=== PATIENT | male | born 1960 | race Caucasian/White ===

== ENCOUNTER 2016-07-26 10:24 | Emergency (ER) | payer BC ==
[2016-07-26 11:33] VITALS: BP 125/73
[2016-07-26] MEDS ORDERED: NS 0.9% 1000 ML* 2,000 ML IV ONE (15:45)
[2016-07-26 16:16] LABS: Hematocrit 47 % (42-52); Mean Corpuscular HGB Conc 34 g/dl (31-36); Mean Corpuscular Hemoglobin 32 pg (27-31); Mean Corpuscular Volume 93 fL (80-94); Mean Platelet Volume 7 um3 (7.4-10.4); Red Blood Count 5.03 10^6/ul (4.0-5.4); Red Cell Distribution Width 13 % (10.5-15); White Blood Count 6.9 10^3/ul (3.5-10.8)
[2016-07-26 16:22] LABS: Urine Bilirubin Negative (Negative); Urine Glucose Negative (Negative); Urine Nitrite Negative (Negative)
[2016-07-26 16:30] LABS: ALT 32 U/L (7-52); Albumin 5.1 g/dL (3.2-5.2); Alkaline Phosphatase 41 U/L (34-104); Blood Urea Nitrogen 13 mg/dL (6-24); C Reactive Protein < 1.00 mg/L (< 5.00); CO2 Carbon Dioxide 27 mmol/L (22-32); Calcium 9.9 mg/dL (8.6-10.3); Chloride 101 mmol/L (101-111); EGFR African American 108.5 (>60); EGFR Non-African American 84.4 (>60); Globulin 2.8 g/dL (2-4); Glucose 98 mg/dL (70-100); Lipase 20 U/L (11.0-82.0); Sodium 136 mmol/L (133-145); Total Protein 7.9 g/dL (6.4-8.9)
[2016-07-26 16:33] LABS: AST 37 U/L (13-39); Anion Gap 8 mmol/L (2-11)
[2016-07-26] MEDS ORDERED: Iohexol 300* (CONTRAST) 10 ML SDV IV ONE (18:06)
--- NOTE | 2016-07-26 18:23 | RAD ---
INDICATION: Right-sided abdominal pain COMPARISON: CT abdomen and pelvis February 16, 2016 TECHNIQUE: Axial source images were obtained from the hemidiaphragms to the symphysis pubis following administration of oral and intravenous contrast. 8 mL Omnipaque 300 was utilized. Coronal and sagittal reconstructed images were acquired. Lung bases: The lung bases are clear. Liver: The liver is normal in size. There are no masses. There is no ductal dilatation. Gallbladder: There is presumed cholecystectomy. Spleen: The spleen is normal in size. There are no masses. Pancreas: There is no focal pancreatic mass or ductal dilatation. Adrenal glands: There is no evidence of adrenal mass. Kidneys: The kidneys are normal in size and position. There are prompt nephrograms and there is prompt excretion bilaterally. There are no renal parenchymal masses. There is no evidence of nephrolithiasis. Adenopathy: There is no evidence of adenopathy by size criteria. Fluid collections: There are no free or localized fluid collections. Vessels:There are no significant atherosclerotic changes involving the aorta. There is no focal aneurysm. The iliac vessels are normal in caliber. The IVC appears normal. GI tract: There are no acute CT bowel findings. There is no obstruction. The stomach and small bowel appear normal. There is diverticulosis of the sigmoid colon. There is no CT evidence of acute diverticulitis The cecum, ileocecal valve, and terminal ileum appear normal. The appendix is not visualized with certainty. There is no periappendiceal inflammatory change Pelvic organs: The prostate and seminal vesicles appear normal Bladder: There are no bladder masses. Abdominal and pelvic soft tissues: The extraperitoneal abdominal and pelvic soft tissues appear normal.. Osseous structures: There is is chronic, healed, L5 spondylolysis. There is a 3 mm anterolisthesis of L5 relative to L4 and S1. Other: None IMPRESSION: NO ACUTE CT FINDINGS. NO MASS OR INFLAMMATORY CHANGE.
[2016-07-26] MEDS ORDERED: Dicyclomine CAP* 10 MG PO ONE (21:00)
--- NOTE | 2016-07-26 21:06 | ED ---
Ponce Barrera Billy, scribed for Sanjay Harrington MD on 07/26/16 at 1847 . Abdominal Pain/Male - HPI Summary HPI Summary: Patient is a 55 year-old male coming to [facility] presenting with diffuse abdominal pain, worst in the RUQ. He has had intermittent, weekly episodes of right-sided abdominal pain for the last 6 years, and the current episode started 2 days ago. Pain severity 10/10, radiates to the right shoulder. He also describes headache (pressure). Nothing makes his symptoms better/worse. PSHx is significant for cholecystectomy. - History of Current Complaint Chief Complaint: EDAbdPain Stated Complaint: RT FLANK PAIN Time Seen by Provider: 07/26/16 15:30 Hx Obtained From: Patient Onset/Duration: Gradual Onset, Still Present Timing: Intermittent Severity Initially: Moderate Severity Currently: Moderate Pain Intensity: 10 Pain Scale Used: 0-10 Numeric Location: Diffuse, Discrete At: RLQ Radiates: Yes Radiates to: Other - shoulder Aggravating Factor(s): Nothing Alleviating Factor(s): Nothing Associated Signs And Symptoms: Positive: Other - headache - Allergies/Home Medications Allergies/Adverse Reactions: Allergies Allergy/AdvReac Type Severity Reaction Status Date / Time Morphine Allergy Severe SEVERE Verified 02/16/16 11:55 VOMITING Penicillins Allergy Unknown Unknown Verified 02/16/16 11:55 Reaction Details PMH/Surg Hx/FS Hx/Imm Hx Endocrine/Hematology History: Denies: Hx Diabetes Cardiovascular History: Denies: Hx Hypertension, Hx Pacemaker/ICD Respiratory History: Comment Only: Other Respiratory Problems/Disorders - LYME GI History: Reports: Hx Gastroesophageal Reflux Disease Denies: Hx Cirrhosis History: Denies: Hx Renal Disease Musculoskeletal History: Reports: Hx Arthritis - RIGHT SHOULDER, SPINE, Hx Bursitis - RIGHT SHOULDER, Hx Tendonitis - RIGHT SHOULDER Sensory History: Reports: Hx Contacts or Glasses - READING GLASSES Denies: Hx Hearing Aid Opthamlomology History: Reports: Hx Contacts or Glasses - READING GLASSES Neurological History: Reports: Other Neuro Impairments/Disorders - LYME DISEASE Psychiatric History: Denies: Hx Panic Disorder - Surgical History Surgery Procedure, Year, and Place: CHO[place]ST[place]OM[place], 06/2010, [place] RIGHT SHOULDER BURSECTOMY Hx Anesthesia Reactions: Yes - MORPHINE - VOMITING SEVERE Infectious Disease History: No Infectious Disease History: Denies: Hx Hepatitis, History Other Infectious Disease, Traveled Outside the [place] in Last 30 Days - Family History Known Family History: Negative: Cardiac Disease, Diabetes - Social History Alcohol Use: None Substance Use Type: Reports: None Smoking Status (MU): Former Smoker Have You Smoked in the Last Year: No Review of Systems Positive: Abdominal Pain Positive: Headache All Other Systems Reviewed And Are Negative: Yes Physical Exam Triage Information Reviewed: Yes Vital Signs On Initial Exam: Initial Vitals Temp Pulse Resp BP Pulse Ox 99.1 F 73 16 136/82 100 07/26/16 10:45 07/26/16 10:45 07/26/16 10:45 07/26/16 10:45 07/26/16 10:45 Vital Signs Reviewed: Yes Appearance: Positive: Well-Appearing, No Pain Distress Skin: Positive: Warm, Skin Color Reflects Adequate Perfusion, Dry Head/Face: Positive: Normal Head/Face Inspection Eyes: Positive: EOMI, JAMIR ENT: Positive: Normal ENT inspection Neck: Positive: Supple, Nontender Respiratory/Lung Sounds: Positive: Clear to Auscultation, Breath Sounds Present Cardiovascular: Positive: RRR Abdomen Description: Positive: Soft, Other: - diffusely tender, worst in RLQ Bowel Sounds: Positive: Other - high-pitched Musculoskeletal: Positive: Normal, Strength/ROM Intact Neurological: Positive: Normal, Sensory/Motor Intact, Alert, Oriented to Person Place, Time Psychiatric: Positive: Affect/Mood Appropriate Diagnostics - Vital Signs Vital Signs Temp Pulse Resp BP Pulse Ox 07/26/16 11:31 98.8 F 83 18 125/73 100 07/26/16 10:45 99.1 F 73 16 136/82 100 - Laboratory Lab Results: Lab Results 07/26/16 07/26/16 07/26/16 Range/Units 16:05 16:05 16:05 WBC 6.9 (3.5-10.8) 10^3/ul RBC 5.03 (4.0-5.4) 10^6/ul Hgb 16.0 (14.0-18.0) g/dl Hct 47 (42-52) % MCV 93 (80-94) fL MCH 32 H (27-31) pg MCHC 34 (31-36) g/dl RDW 13 (10.5-15) % Plt Count 237 (150-450) 10^3/ul MPV 7 L (7.4-10.4) um3 Neut % (Auto) 73.6 (38-83) % Lymph % (Auto) 17.6 L (25-47) % Rush % (Auto) 8.0 (1-9) % Eos % (Auto) 0.4 (0-6) % Baso % (Auto) 0.4 (0-2) % Absolute Neuts (auto) 5.1 (1.5-7.7) 10^3/ul Absolute Lymphs (auto) 1.2 (1.0-4.8) 10^3/ul Absolute Monos (auto) 0.6 (0-0.8) 10^3/ul Absolute Eos (auto) 0 (0-0.6) 10^3/ul Absolute Basos (auto) 0 (0-0.2) 10^3/ul Absolute Nucleated RBC 0 10^3/ul Nucleated RBC % 0 INR (Anticoag Therapy) (0.89-1.11) Sodium 136 (133-145) mmol/L Potassium 4.0 (3.5-5.0) mmol/L Chloride 101 (101-111) mmol/L Carbon Dioxide 27 (22-32) mmol/L Anion Gap 8 (2-11) mmol/L BUN 13 (6-24) mg/dL Creatinine 0.93 (0.67-1.17) mg/dL Est GFR ( Amer) 108.5 (>60) Est GFR (Non-Af Amer) 84.4 (>60) BUN/Creatinine Ratio 14.0 (8-20) Glucose 98 (70-100) mg/dL Lactic Acid (0.5-2.0) mmol/L Calcium 9.9 (8.6-10.3) mg/dL Total Bilirubin 2.00 H (0.2-1.0) mg/dL AST 37 (13-39) U/L ALT 32 (7-52) U/L Alkaline Phosphatase 41 (34-104) U/L C-Reactive Protein < 1.00 (< 5.00) mg/L Total Protein 7.9 (6.4-8.9) g/dL Albumin 5.1 (3.2-5.2) g/dL Globulin 2.8 (2-4) g/dL Albumin/Globulin Ratio 1.8 (1-3) Lipase 20 (11.0-82.0) U/L Urine Color Yellow Urine Appearance Clear Urine pH 6.0 (5-9) Ur Specific [place] 1.008 L (1.010-1.030) Urine Protein Negative (Negative) Urine Ketones 1+ H (Negative) Urine Blood Negative (Negative) Urine Nitrate Negative (Negative) Urine Bilirubin Negative (Negative) Urine Urobilinogen Negative (Negative) Ur Leukocyte Esterase Negative (Negative) Urine Glucose Negative (Negative) 07/26/16 07/26/16 Range/Units 16:05 16:05 WBC (3.5-10.8) 10^3/ul RBC (4.0-5.4) 10^6/ul Hgb (14.0-18.0) g/dl Hct (42-52) % MCV (80-94) fL MCH (27-31) pg MCHC (31-36) g/dl RDW (10.5-15) % Plt Count (150-450) 10^3/ul MPV (7.4-10.4) um3 Neut % (Auto) (38-83) % Lymph % (Auto) (25-47) % Rush % (Auto) (1-9) % Eos % (Auto) (0-6) % Baso % (Auto) (0-2) % Absolute Neuts (auto) (1.5-7.7) 10^3/ul Absolute Lymphs (auto) (1.0-4.8) 10^3/ul Absolute Monos (auto) (0-0.8) 10^3/ul Absolute Eos (auto) (0-0.6) 10^3/ul Absolute Basos (auto) (0-0.2) 10^3/ul Absolute Nucleated RBC 10^3/ul Nucleated RBC % INR (Anticoag Therapy) 0.95 (0.89-1.11) Sodium (133-145) mmol/L Potassium (3.5-5.0) mmol/L Chloride (101-111) mmol/L Carbon Dioxide (22-32) mmol/L Anion Gap (2-11) mmol/L BUN (6-24) mg/dL Creatinine (0.67-1.17) mg/dL Est GFR ( Amer) (>60) Est GFR (Non-Af Amer) (>60) BUN/Creatinine Ratio (8-20) Glucose (70-100) mg/dL Lactic Acid 1.6 (0.5-2.0) mmol/L Calcium (8.6-10.3) mg/dL Total Bilirubin (0.2-1.0) mg/dL AST (13-39) U/L ALT (7-52) U/L Alkaline Phosphatase (34-104) U/L C-Reactive Protein (< 5.00) mg/L Total Protein (6.4-8.9) g/dL Albumin (3.2-5.2) g/dL Globulin (2-4) g/dL Albumin/Globulin Ratio (1-3) Lipase (11.0-82.0) U/L Urine Color Urine Appearance Urine pH (5-9) Ur Specific [place] (1.010-1.030) Urine Protein (Negative) Urine Ketones (Negative) Urine Blood (Negative) Urine Nitrate (Negative) Urine Bilirubin (Negative) Urine Urobilinogen (Negative) Ur Leukocyte Esterase (Negative) Urine Glucose (Negative) Result Diagrams: 07/26/16 16:05 07/26/16 16:05 Lab Statement: Any lab studies that have been ordered have been reviewed, and results considered in the medical decision making process. - CT abd/pel w CT Interpretation: No Acute Changes CT Interpretation Completed By: Radiologist Re-Evaluation - Re-Evaluation First Eval Re-Evaluation Time: 19:44 Comment: Labs and imaging reviewed. Patient states he wishes to speak to a surgeon. Abdominal Pain Fem Course/Dx - Course Assessment/Plan: DISCUSSED RESULTS WITH PATIENT. NO EVIDENCE OF SURGICAL ABDOMEN AT THIS TIME. WILL TRY A TRIAL OF BENTYL. F/U WITH GI AND SURGERY. DISCHARGE HOME STABLE. - Diagnoses Provider Diagnoses: Chronic abdominal pain - Provider Notifications Discussed Care Of Patient With: Dr. Ochoa (surgery) @ 2012: will see as outpatient Discharge - Discharge Plan Condition: Stable Disposition: HOME Prescriptions: Dicyclomine CAP* [Bentyl CAP*] 10 mg PO TID PRN #30 cap PRN Reason: Pain Patient Education Materials: Abdominal Pain (ED) Referrals: Sara Mead MD [Primary Care Provider] - Additional Instructions: FOLLOW UP WITH GASTROENTEROLOGY AND SURGERY. TAKE THE BENTYL DIRECTED IF HELPFUL. RETURN TO THE EMERGENCY DEPARTMENT FOR ANY WORSENING OF YOUR CONDITION OR QUESTIONS OR CONCERNS. The documentation as recorded by the Ponce martinez Billy accurately reflects the service I personally performed and the decisions made by me, Sanjay Harrington MD.
== END 2016-07-26 21:16 | disposition home or self-care (01) ==
LOC: ED 10:24
DX: R10.9 Unspecified abdominal pain (principal); G89.29 Other chronic pain; Z88.0 Allergy status to penicillin; Z88.5 Allergy status to narcotic agent; A69.20 Lyme disease, unspecified; Z87.891 Personal history of nicotine dependence
CPT/HCPCS: 36415; 74177; 80053; 81003; 82140; 83605; 83690; 85025; 85610; 86140; 96360; 99282; A9270-GY; Q9967

== ENCOUNTER → 2016-09-20 14:16 | Day surgery (SDC) | payer BC ==
[~2016-09-20 14:16] MED LIST: Bacitracin OINTMENT* 1 TUBE ONE; Buffered Lidocaine 1% SYRIN* 3 ML/SYR SYRINGE INTRADERM ONE; Bupivacaine 0.25% EPI 200,000* 30 ML SDV ONE; Clindamycin 900 MG IVPREMIX(* 900 MG/50 ML SDV IV ONE; Dexamethasone IV* 4 MG/ML 1 ML (4 MG) ONE; EPHEDrine (Pressors)* 50 MG/ML VIAL ONE; Famotidine IV* 10 MG/ML 2 ML (20 mg) IV ONE; Famotidine IV* 10 MG/ML 2 ML (20 mg) ONE; Glycopyrrolate IV* 0.2 MG/ML 1 ML VIAL ONE; HYDROmorphone* 1 MG/ML 1 ML SYR IV PRN; HYDROmorphone* 1 MG/ML 1 ML SYR ONE; KETAMINE HCL* 50 MG/ML 10 ML VIAL ONE; Ketorolac INJ* 30 MG/ML 1 ML VIAL ONE; Midazolam* 1 MG/ML 5 ML VIAL (5 MG) ONE; Neostigmine Methylsulfate* 2 MG/2 ML SYRINGE ONE; Ondansetron INJ* 2 MG/ML VIAL ONE; PROCHLORPERAZINE INJ 5 MG/ML 2 ML VIAL IV PRN; PROCHLORPERAZINE INJ 5 MG/ML 2 ML VIAL ONE; Propofol* 10 MG/ML 20 ML BTL IV PUSH ONE; Scopolamine 1.5 mg* PATCH ONE; Scopolamine 1.5 mg* PATCH TRANSDERM ONE; Scopolomine PATCH Remove* 1 NOTE MISC PATCH OFF ONE; fentaNYL* 50 MCG/ML 2 ML VIAL (100 MCG VIAL) IV PRN; fentaNYL* 50 MCG/ML 2 ML VIAL (100 MCG VIAL) ONE; oxyCODONE/Acetamin 5/325 MG* TAB PO PRN
--- NOTE | 2016-09-20 16:31 | SURGPN ---
Brief Operative Note - Surgery Procedures: Procedures Pre-OP Diagnoses: abdominal pain Post-op Diagnosis: same Procedure: Diagnostic Laparoscopy, appendectomy Surgeon: Don Asst: Humphrey Stahl EBL: minimal IVF: crystalloid Specimen: appendix Drains: none
[2016-09-20 17:53] VITALS: BP 123/72
--- NOTE | 2016-09-21 05:48 | OP ---
CC: Sara Mead MD; [facility] OPERATIVE REPORT: DATE OF OPERATION: 09/20/16 DATE OF : 60 SURGEON: Issac Ochoa MD HABILITATIVE INTERVENTIONIST: MI Greco ANESTHESIOLOGIST: Dr. Stahl. ANESTHESIA: General. PRE-OP DIAGNOSIS: Abdominal pain. POST-OP DIAGNOSIS: Abdominal pain. OPERATIVE PROCEDURE: Diagnostic laparoscopy, appendectomy. ESTIMATED BLOOD LOSS: Minimal. FLUIDS: Minimal crystalloid fluid given. SPECIMEN: Appendix. DRAINS: None. INSTRUMENT: Lap pad count and instrument count correct at the end of the procedure. DESCRIPTION OF PROCEDURE: The patient was identified in the preoperative area, case discussed with him and his again, and consent signed for laparoscopic appendectomy. The patient was marked, b rought to the operating room and placed on the operating room in supine position. Preoperative anti biotics were given, sequential devices were placed on bilateral lower extremities. General anesthes ia was induced. The patient's abdomen was clipped of hair, prepped and draped in a standard surgica l fashion. A time-out was performed. Folds of the umbilicus were elevated anteriorly and a Veress needle was inserted through the abdominal cavity, which was then allowed to insufflate to a pressure of 15 mmHg. The patient tolerated the insufflation well. An infraumbilical incision was made and a 5 mm trocar was inserted through this. Laparoscope was inserted through this and there was no hemal dence of injury from the trocar insertion or from the Veress needle which was removed. Additional t rocars were then placed in the following positions, a 5 mm in the suprapubic area and a 5 mm in the left lower quadrant. Review of the abdomen showed normal-appearing liver, gallbladder was surgically absent. Stomach sally eared intact. There was scant amount of free fluid above the liver. The pelvis showed also a very scant amount of ascites fluid. The sigmoid colon was intact with mild adhesions to the left lateral sidewall. The inguinal spaces bilaterally showed no evidence of herniation. Attention was turned towards the appendix. It was nondilated and it was adhered to the retroperiton eum. It was lifted up, both sharp dissection and electrocautery was utilized to free it up from the retroperitoneum. Once this was lifted and rotated medially, we were able to isolate the vessel. T his was doubly clipped and ligated. Hemostasis was excellent. Next, the appendix was lifted up off the cecum and a 2-0 Polysorb Endoloop was placed at the base of the appendix through healthy tissue. The distal portion of the appendix was clipped and re-cut bet ween the suture and the clip. Appendix was then placed in a 5 mm Endobag and removed through the um bilical port site without event. Review of the clip line and the Endoloop showed no evidence of ble eding or enteric contents. The mucosa of the appendiceal stump was then cauterized and the table wa s repositioned to neutral. Abdomen was allowed to collapse. Trocars were removed under direct visi on, and all 3 skin incisions were reapproximated with 4-0 Monocryl subcuticular sutures followed by Steri-Strips and sterile dressing. The patient tolerated the procedure well, was woken up in the OR , and transferred to the PACU in stable condition. [id number]/[facility] #: [id number]
== END | disposition home or self-care (01) ==
LOC: OR 14:16
PROVIDERS: ATTEND Surgery
DX: R10.31 Right lower quadrant pain (principal); Z88.0 Allergy status to penicillin; Z88.5 Allergy status to narcotic agent; Z87.891 Personal history of nicotine dependence; F41.9 Anxiety disorder, unspecified; R10.84 Generalized abdominal pain
CPT/HCPCS: 88304; A9270-GY; C1776; J0780; J1100; J1170; J1885; J2250; J2405; J2704; J3010

== ENCOUNTER 2017-06-06 07:26 | Day surgery (SDC) | payer BC ==
[~2017-06-06 07:26] MED LIST changes: -Bacitracin OINTMENT* 1 TUBE ONE; +Buffered Lidocaine 0.9% SYRIN* 5 ML/SYR SYRINGE INTRADERM ONE; -Buffered Lidocaine 1% SYRIN* 3 ML/SYR SYRINGE INTRADERM ONE; -Bupivacaine 0.25% EPI 200,000* 30 ML SDV ONE; -Clindamycin 900 MG IVPREMIX(* 900 MG/50 ML SDV IV ONE; -Dexamethasone IV* 4 MG/ML 1 ML (4 MG) ONE; +DiMENhydriNATE IV* 50 MG/ML VIAL IV PUSH PRN; -EPHEDrine (Pressors)* 50 MG/ML VIAL ONE; -Famotidine IV* 10 MG/ML 2 ML (20 mg) ONE; -Glycopyrrolate IV* 0.2 MG/ML 1 ML VIAL ONE; -HYDROmorphone* 1 MG/ML 1 ML SYR IV PRN; -HYDROmorphone* 1 MG/ML 1 ML SYR ONE; -KETAMINE HCL* 50 MG/ML 10 ML VIAL ONE; -Ketorolac INJ* 30 MG/ML 1 ML VIAL ONE; -Midazolam* 1 MG/ML 5 ML VIAL (5 MG) ONE; -Neostigmine Methylsulfate* 2 MG/2 ML SYRINGE ONE; -Ondansetron INJ* 2 MG/ML VIAL ONE; -PROCHLORPERAZINE INJ 5 MG/ML 2 ML VIAL ONE; -Propofol* 10 MG/ML 20 ML BTL IV PUSH ONE; -Scopolamine 1.5 mg* PATCH ONE; -Scopolamine 1.5 mg* PATCH TRANSDERM ONE; -Scopolomine PATCH Remove* 1 NOTE MISC PATCH OFF ONE; -fentaNYL* 50 MCG/ML 2 ML VIAL (100 MCG VIAL) ONE
[2017-06-06] MEDS ORDERED: Clindamycin 900 MG IVPREMIX(* 900 MG/50 ML SDV IV ONE (07:29)
[2017-06-06] MEDS ORDERED: Buffered Lidocaine 0.9% SYRIN* 5 ML/SYR SYRINGE ONE ×2 (07:30→07:44)
[2017-06-06] MEDS ORDERED: Famotidine IV* 10 MG/ML 2 ML (20 mg) ONE (07:48)
[2017-06-06] MEDS ORDERED: Lidocaine 1% MPF wEPI 200,000* 30 ML SDV ONE ×2 (07:50→10:16)
[2017-06-06] MEDS ORDERED: Midazolam* 1 MG/ML 10 ML VIAL (10 MG) ONE (08:32)
[2017-06-06] MEDS ORDERED: fentaNYL* 50 MCG/ML 2 ML VIAL (100 MCG VIAL) ONE (08:32)
[2017-06-06] MEDS ORDERED: KETAMINE HCL* 50 MG/ML 10 ML VIAL ONE (08:32)
[2017-06-06] MEDS ORDERED: Propofol* 10 MG/ML 20 ML BTL IV PUSH ONE (10:24)
[2017-06-06] MEDS ORDERED: Ondansetron INJ* 2 MG/ML VIAL ONE (10:24)
[2017-06-06] MEDS ORDERED: Lidocaine 2% PF * 5 ML VIAL ONE (10:25)
--- NOTE | 2017-06-06 10:36 | SURGPN ---
Brief Operative Note - Surgery Procedures: Procedures Pre-OP Diagnoses: Lyme disease Post-op Diagnosis: same Procedure: insertion of Groshong catheter Surgeon: Don Asst: none Anethesia: Local MAC, Dr Stahl EBL: minimal IVF: crystalloid Specimen: none Drains: none 8Fr groshong catheter into R IJV
--- NOTE | 2017-06-06 11:29 | RAD ---
Indication: Postop insertion of a Groshong catheter at the RIGHT IJ. Comparison: Intraoperative exam of the same date and September 15, 2016 chest radiograph. Technique: Upright AP 1055 hours Report: Tip of the RIGHT IJ central venous catheter is at the level of the superior vena cava RIGHT atrial junction. Negative for pneumothorax. Clear lungs and pleural spaces. The heart, pulmonary vasculature, and mediastinal contours are unremarkable. IMPRESSION: Negative for pneumothorax post RIGHT central venous catheter placement.
[2017-06-06 11:45] VITALS: BP 106/57
--- NOTE | 2017-06-08 01:29 | OP ---
CC: Dr. Sara Mead * DATE OF OPERATION: 06/06/17 - [facility] DATE OF : 60 SURGEON: Issac Ochoa MD MARKETING SYSTEMS MANAGER: None. ANESTHESIOLOGIST: Triston Stahl MD ANESTHESIA: Local MAC. PRE-OP DIAGNOSIS: Lyme disease. POST-OP DIAGNOSIS: Lyme disease. OPERATIVE PROCEDURE: Insertion of Groshong catheter. INDICATIONS: Mr. Rivero is a 56-year-old gentleman suffering with a disorder that has been diagnosed with Lyme, and the patient is for planned for long-term IV antibiotics and presents for placement of a long-term catheter for infusion. ESTIMATED BLOOD LOSS: Minimum. IV FLUIDS: Minimal crystalloid fluid given. SPECIMEN: None. DESCRIPTION OF PROCEDURE: The patient was marked in the preoperative area and brought to the operating room and placed on the operating table in the supine position. Preoperative antibiotics were given. Sequential devices were placed on bilateral lower extremities. Gentle sedation was given. The patient's right upper neck and chest were prepped and draped in the standard surgical fashion. Time-out was performed. Injection with lidocaine along the proposed incision just inferior to the right clavicle was made. The right subclavian vein was accessed and a wire inserted under fluoroscopy to the superior vena cava. Next, an incision inferior to this was made where the Groshong catheter would exit. The catheter was tunneled through to the wire site, which also was incised. Dilator and a split- away catheter were inserted under fluoroscopy and I then next placed the Groshong catheter through the split-away catheter. It would not advance despite having the insert into the Groshong catheter and after multiple attempts , we decided to remove our split-away catheter and attempt another site. It should be noted that there was some difficulty coming through the tissue with my finder needle and even dilating the vessel was somewhat difficult. A second access was performed just lateral to the initial stick side on the right subclavian vein and again the same issue happened with some difficulty. The dilator and split-away catheter were inserted under fluoroscopy. They were in the appropriate positioning, but we could simply not advance the Groshong catheter through the split-away catheter despite manipulation of the arm. At this point, this catheter was removed and I shifted the tension to the right neck. This had been prepped. We reprepped the area anyhow. The internal jugular vein was accessed after injection of lidocaine and split-away catheter inserted. The Groshong catheter was taken off its previous tunneled area and re- tunneled through loose incision up to the neck incision. It was then inserted through the split-away catheter with ease, placed in the appropriate position. Split-away catheter removed and the neck area was sutured with 4-0 Monocryl suture. The two incisions that we made prior that were not used were closed in a similar fashion. We injected heparinized saline after aspirating blood with ease at the site of the Groshong catheter and then this was sutured to the skin with the given hub with a 3-0 Prolene suture. Sterile dressing was applied. The patient tolerated the procedure well, was transferred to PACU in stable condition. [id number]/[facility] #: [id number] TAMARA
--- NOTE | 2017-06-08 16:20 | RAD ---
INDICATION: RIGHT IJ Groshong catheter placement following aborted initial subclavian approach. COMPARISON: No relevant prior exams available on the [facility] PACS for comparison. TECHNIQUE: 142.2 seconds fluoroscopy. FINDINGS: Spot image documents the catheter extending from level of the RIGHT IJ to the superior vena cava RIGHT atrial junction. IMPRESSION: Procedural fluoroscopy. CPT II Codes: 6045F
== END 2017-06-06 11:45 | disposition home or self-care (01) ==
LOC: OR 07:26
PROVIDERS: ATTEND Surgery
DX: A69.20 Lyme disease, unspecified (principal); Z87.891 Personal history of nicotine dependence
CPT/HCPCS: 71010; 76001; C1751; J1642; J2001; J2250; J2405; J2704; J3010

== ENCOUNTER 2018-06-13 16:49 | Inpatient (IN) | payer BC ==
[2018-06-13] MEDS ORDERED: NS 0.9% 1000 ML*IV.FLUID IV ONE (17:11)
[2018-06-13] MEDS ORDERED: Acetaminophen TAB* 325 MG PO ONE (17:12)
[2018-06-13] MEDS ORDERED: Cefepime 2 GM in Dextrose(*) 2 GM/50 ML BAG IV ONE (17:24)
--- NOTE | 2018-06-13 17:29 | ED ---
HPI Febrile Illness - HPI Summary HPI Summary: Pt is a 57 y/o male who presents to the ED c/o fever. 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 Pt gets blood cultures done every , and was referred to the ED for removal of port by Dr. Rc Bee, the head of pathology for a positive blood culture. He reports a fever of 101.2 degrees F, chills, body aches, and bilateral shoulder pain. Pt receives stem cell treatment in [place], and is scheduled for his next treatment in 4 days. He has been off antibiotics for 1 month. Pt denies any cough, urinary sx, or drainage from his port site. - History of Current Complaint Chief Complaint: EDGeneral Time Seen by Provider: 06/13/18 17:10 Hx Obtained From: Patient Onset/Duration: Still Present Timing: Constant Pain Intensity: 0 Pain Scale Used: 0-10 Numeric Aggravating Factors: Nothing Alleviating Factors: Nothing Associated Signs and Symptoms: Chills - Allergy/Home Medications Allergies/Adverse Reactions: Allergies Allergy/AdvReac Type Severity Reaction Status Date / Time MS Morphine [Morphine] Allergy Severe SEVERE Verified 05/22/18 13:59 VOMITING MS Penicillins [Penicillins] Allergy Unknown Unknown Verified 05/22/18 13:59 Reaction Details heparin Allergy See Comment Verified 06/13/18 17:04 PMH/Surg Hx/FS Hx/Imm Hx Endocrine/Hematology History: Denies: Hx Diabetes Cardiovascular History: Reports: Hx Valvular Heart Disease - possible mitral valve prolapsed, Other Cardiovascular Problems/Disorders - LYME Denies: Hx Hypertension, Hx Pacemaker/ICD Respiratory History: Comment Only: Other Respiratory Problems/Disorders - LYME GI History: Reports: Hx Gastroesophageal Reflux Disease, Other GI Disorders - Conrad Syndrome Denies: Hx Cirrhosis History: Denies: Hx Renal Disease Musculoskeletal History: Reports: Hx Arthritis - RIGHT SHOULDER, SPINE, Hx Bursitis - RIGHT SHOULDER, Hx Tendonitis - RIGHT SHOULDER, Other Musculoskeletal History - Lyme disease Sensory History: Reports: Hx Contacts or Glasses - READING GLASSES Denies: Hx Hearing Aid Opthamlomology History: Reports: Hx Contacts or Glasses - READING GLASSES Neurological History: Reports: Other Neuro Impairments/Disorders - LYME DISEASE Psychiatric History: Reports: Hx Anxiety Denies: Hx Panic Disorder - Surgical History Surgery Procedure, Year, and Place: CHOLE[place]ST[place]OMY, 06/2010, [place] RIGHT SHOULDER BURSECTOMY. [place] [facility] [place] Anesthesia Reactions: Yes - MORPHINE - VOMITING SEVERE Infectious Disease History: No Infectious Disease History: Denies: Hx Hepatitis, History Other Infectious Disease, Traveled Outside the [place] in Last 30 Days - Family History Known Family History: Negative: Cardiac Disease, Diabetes - Social History Alcohol Use: None Hx Substance Use: No Substance Use Type: Reports: None Substance Use Comment - Amount & Last Used: daily per pt Hx Tobacco Use: Yes Smoking Status (MU): Former Smoker Amount Used/How Often: pack a day for 25 years Have You Smoked in the Last Year: No Review of Systems Positive: Fever, Chills, Other - Body aches Negative: Cough Genitourinary: Negative Positive: Arthralgia - bilateral shoulders All Other Systems Reviewed And Are Negative: Yes Physical Exam - Summary Physical Exam Summary: Appearance: Well appearing, no pain distress Skin: warm, dry, reflects adequate perfusion Head/face: normal Eyes: EOMI, JAMIR ENT: mucous membranes moist Neck: supple, non-tender Respiratory: CTA, breath sounds present Cardiovascular: tachycardic but regular rhythm, pulses symmetrical Abdomen: non-tender, soft, tunnel catheter in right chest Bowel Sounds: present Musculoskeletal: normal, strength/ROM intact Neuro: normal, sensory motor intact, A&Ox3 Triage Information Reviewed: Yes Vital Signs On Initial Exam: Initial Vitals Temp Pulse Resp BP Pulse Ox 101 F 116 20 115/61 95 06/13/18 16:59 06/13/18 16:59 06/13/18 16:59 06/13/18 16:59 06/13/18 16:59 Vital Signs Reviewed: Yes Diagnostics - Vital Signs Vital Signs Temp Pulse Resp BP Pulse Ox 06/13/18 16:59 101 F 116 20 115/61 95 - Laboratory Result Diagrams: 06/13/18 17:27 06/13/18 17:27 Lab Statement: Any lab studies that have been ordered have been reviewed, and results considered in the medical decision making process. - EKG 17:55 Cardiac Rate: NL - 90 bpm EKG Rhythm: Sinus Rhythm ST Segment: Normal Summary of EKG Findings: Nl axis, nl interval Course/Dx - Course Course Of Treatment: Nurse's note reviewed. Patient had been on chronic IV antibiotics through a tunnel catheter in the right chest. Today, he had fever and had blood work drawn prior to arrival. This blood work showed gram- negative negative bacilli in the blood. Blood cultures drawn here, IV cefepime given. Admit to hospitalist. Patient otherwise stable. He has refused chest x -ray. - Febrile Illness Differential Diagnoses: Bacteremia, Cellulitis, Fever of Unknown Origin, Pneumonia, Sepsis - Diagnoses Provider Diagnoses: Gram-negative bacteremia, Sepsis - Provider Notifications Discussed Care Of Patient With: Iván Lorenzo Time Discussed With Above Provider: 18:08 Instructed by Provider To: Admit As Inpatient Discharge - Sign-Out/Discharge Documenting (check all that apply): Patient Departure - Admit - Discharge Plan Condition: Stable Disposition: ADMITTED TO [facility] Referrals: Sara Mead MD [Primary Care Provider] - - Billing Disposition and Condition Condition: STABLE Disposition: Admitted to [facility] - Attestation Statements Document Initiated by She: Yes Documenting Scribe: Sally San Provider For Whom Scribe is Documenting (Include Credential): Everardo Robertson MD Scribe Attestation: Sally Barrera scribed for Everardo Robertson MD on 06/13/18 at 1846. Scribe Documentation Reviewed: Yes Provider Attestation: The documentation as recorded by the Sally martinez accurately reflects the service I personally performed and the decisions made by Everardo alejandro MD Status of Scribe Document: Viewed
[2018-06-13 17:41] LABS: Hematocrit 37 % (42-52); Hemoglobin 13.1 g/dl (14.0-18.0); Mean Corpuscular HGB Conc 35 g/dl (31-36); Mean Corpuscular Hemoglobin 32 pg (27-31); Mean Corpuscular Volume 92 fL (80-94); Mean Platelet Volume 7.4 fL (7.4-10.4); Platelet Count 137 10^3/ul (150-450); Red Blood Count 4.06 10^6/ul (4.00-5.40); Red Cell Distribution Width 13 % (10.5-15); White Blood Count 4.5 10^3/ul (3.5-10.8)
[2018-06-13 17:50] LABS: Activated Partial Thrombo Time 28.5 seconds (26.0-36.3); INR 0.97 (0.77-1.02)
[2018-06-13 17:58] LABS: Albumin 3.8 g/dL (3.2-5.2); Albumin/Globulin Ratio 1.4 (1-3); BUN/Creatinine Ratio 25.3 (8-20); C Reactive Protein 89.68 mg/L (<8.01); Calcium 9.2 mg/dL (8.6-10.3); EGFR Non-African American 95.5 (>60); Globulin 2.7 g/dL (2-4); Potassium 3.9 mmol/L (3.5-5.0); Total Bilirubin 1.3 mg/dL (0.2-1.0); Total Protein 6.5 g/dL (6.4-8.9)
[2018-06-13 18:24] LABS: Urine Appearance Clear; Urine Bilirubin Negative (Negative); Urine Blood Negative (Negative); Urine Color Yellow; Urine Glucose Negative (Negative); Urine Ketones Negative (Negative); Urine Nitrite Negative (Negative); Urine Protein Negative (Negative); Urine Specific Gravity 1.006 (1.010-1.030); Urine Urobilinogen Negative (Negative)
[2018-06-13 18:33] LABS: ABS Neutrophils 4.05 10^3/ul (1.5-7.7); Immature Granulocytes 5 % (0-9); Lymphocytes % 8 %; Monocytes % 2 %; Neutrophil % 83 %
[2018-06-13 18:34] LABS: ABS Basophils 0.046 10^3/ul (0-0.2); ABS Eosinophils 0.046 10^3/ul (0-0.6)
[2018-06-13] MEDS ORDERED: Heparin VIAL(*) 5000 UNITS/ML VIAL (FIVE THOUSAND) SUBCUT SCH (22:00)
[2018-06-13] MEDS: NS 0.9% 1000 ML* 1,000 ML IV SCH (23:24)
[2018-06-14] MEDS ORDERED: clonazePAM TAB(*) 1 MG PO PRN (00:23)
--- NOTE | 2018-06-14 00:24 | ADMNOTE ---
Subjective Date of Service: 06/13/18 Interval History: code status full pt and family are extremely fixation on his lyme and have mulitiple irrational requests and demands hpi this is a 57 yr old wm with hx of lyme with neurological symptoms has been getting home infusion daily since 06/08/2017 with rocephin/doxycycline/ daptomycin until a little over one month ago via his permacath was called in by lab after he was found to have + blood culture from his permacath site drawn at 2 pm ---> result prelim with gram neg bacilli ---> pt says his last spinal tap was 1 month ago which came back neg he is on his way to [place] next sunday for stem cell treatment for his lyme. pt has no fever/chills or any beyond his baseline neurological c/o this publications writer mentioned id ---> he refused to be near by id Dr Sal and has used nasty comments reg how he was misdiagnosed by multiple different dr mary his lyme. phx late lyme was on triple abx therapy since 06/08/2017 until one month ago. a promise reg his lyme workup and progress has been provided a copy in chart ---> dicated by Dr turner 05/2017. anxiety ? personality disorder permacath placed by Dr Barth 06/2018 pshx s/p appy s/p cholecystectomy s/p permacath placed for prolonged abx treatement s/p jaw bone surgery due to cavities related to his lyme social hx no cig no etoh uses marijuana otherwise no other ivda fhx paternal side + prostte cancer from grand dad and his dad, dm Review of Systems - Measurements Intake and Output: Intake and Output Last 24 Hours 06/11/18 06/12/18 06/13/18 06/14/18 06:59 06:59 06:59 06:59 Intake Total 2139 Balance 2140 Weight 150 lb Intake: IV Fluids 2139 - Review of Systems General Comments: pertinent as per hpi Objective Active Medications: Clonazepam (Klonopin Tab(*)) 1 mg PO TID PRN PRN Reason: AGITATION/ANXIETY Sodium Chloride (Ns 0.9% 1000 Ml*) 1,000 mls @ 100 mls/hr IV PER RATE [facility] Last Admin: 06/13/18 23:24 Dose: 100 mls/hr Non-Formulary Medication (L. Acidophilus/Bifid. Animalis [Probiotic 5 Billion Cell Cap]) 1 cap PO DAILY [facility] Vital Signs - 8 hr 06/13/18 06/13/18 06/13/18 16:59 17:12 17:19 Temperature 101 F Pulse Rate 116 104 Respiratory 20 Rate Blood Pressure 115/61 118/72 (mmHg) O2 Sat by Pulse 95 98 95 Oximetry 06/13/18 06/13/18 06/13/18 17:49 18:00 18:19 Temperature Pulse Rate 93 95 87 Respiratory 17 21 26 Rate Blood Pressure 107/69 105/65 (mmHg) O2 Sat by Pulse 93 97 96 Oximetry 06/13/18 06/13/18 06/13/18 18:50 19:00 19:20 Temperature Pulse Rate 89 80 95 Respiratory 22 19 21 Rate Blood Pressure 105/61 119/74 (mmHg) O2 Sat by Pulse 95 97 98 Oximetry 06/13/18 06/13/18 06/13/18 19:49 22:11 22:19 Temperature 0 F 98.7 F Pulse Rate 87 0 91 Respiratory 18 0 24 Rate Blood Pressure 111/70 00/00 124/75 (mmHg) O2 Sat by Pulse 96 0 100 Oximetry 06/13/18 22:28 Temperature Pulse Rate Respiratory Rate Blood Pressure (mmHg) O2 Sat by Pulse 91 Oximetry Oxygen Devices in Use Now: None Appearance: nad Eyes: No Scleral Icterus, PERRLA Ears/Nose/Mouth/Throat: NL Teeth, Lips, Gums, Clear Oropharnyx, Mucous Membranes Moist Neck: NL Appearance and Movements; NL JVP, Trachea Midline, No Thyroid Enlargement, Masses Respiratory: Symmetrical Chest Expansion and Respiratory Effort, Clear to Auscultation Cardiovascular: NL Sounds; No Murmurs; No JVD, RRR Abdominal: NL Sounds; No Tenderness; No Distention Extremities: No Edema, - - able to raise ue and le ext against gravity Skin: No Rash or Ulcers, - - no erythema warmth overlying permacath site Neurological: Alert and Oriented x 3, NL Sensation, NL Muscle Strength and Tone Result Diagrams: 06/13/18 17:27 06/13/18 17:27 Assess/Plan/Problems-Billing Assessment: 57 yr old wm with hx of late lyme with neuro deficits was called in due to + blood cx drawn from his permacath site. pt has been on three abx regime at home for one yr until one month ago. - Patient Problems (1) Positive blood culture Current Visit: Yes Status: Acute Code(s): R78.81 - BACTEREMIA SNOMED Code( s): 388997291 Comment: this is drawn from his permacat site last dose of three abx was one month ago ---> repeat blood cx peripheral ordered pt got one dose maxipime ----> refused to see id will continue this med while waiting for identification of gram neg and repeat peripheral blood cx will call Surg in am to take out his permacath (2) Late effect of Lyme disease Current Visit: Yes Status: Acute Code(s): B94.9 - SEQUELAE OF UNSPECIFIED INFECTIOUS AND PARASITIC DISEASE SNOMED Code(s): 753821755 Comment: neurological intact when seen will doris (3) Personality disorder Current Visit: Yes Status: Acute Code(s): F60.9 - PERSONALITY DISORDER, UNSPECIFIED SNOMED Code(s): 52864764 Comment: pt has been very fixed on his lyme and has been giving er staff a hard time while has kept focusing on lyme and critisizing all the drs have been involved with his lyme symptoms in the past supportive care (4) Anxiety Current Visit: Yes Status: Acute Code(s): F41.9 - ANXIETY DISORDER, UNSPECIFIED SNOMED Code(s): 79003093 Comment: benzo as home dose
[2018-06-14] MEDS: Cefepime 2 GM in Dextrose(*) 2 GM/50 ML BAG IV SCH ×2 (05:52→17:47)
[2018-06-14] MEDS ORDERED: Lactobacillus Acidophilus* 1 TAB PO SCH (09:00)
--- NOTE | 2018-06-14 12:02 | PN ---
Objective Active Medications: Clonazepam (Klonopin Tab(*)) 1 mg PO TID PRN PRN Reason: AGITATION/ANXIETY Sodium Chloride (Ns 0.9% 1000 Ml*) 1,000 mls @ 100 mls/hr IV PER RATE [facility] Last Admin: 06/13/18 23:24 Dose: 100 mls/hr Cefepime HCl (Maxipime 2 Gm In Dextrose Duplex (*)) 2 gm in 50 mls @ 100 mls/ hr IV Q12H [facility] Last Admin: 06/14/18 05:52 Dose: 100 mls/hr Lactobacillus Rhamnosus (Lactobacillus Acidophilus*) 1 tab PO DAILY [facility] Last Admin: 06/14/18 11:38 Dose: 1 tab Vital Signs - 8 hr 06/14/18 06/14/18 06/14/18 06:01 07:28 07:43 Temperature 98.0 F 98.1 F Pulse Rate 69 73 Respiratory 20 16 18 Rate Blood Pressure 106/63 (mmHg) O2 Sat by Pulse 98 99 Oximetry Oxygen Devices in Use Now: None Result Diagrams: 06/13/18 17:27 06/13/18 17:27 Microbiology and Other Data: Microbiology 06/13/18 17:59 Aerobic Blood Culture - Preliminary Blood Venous Pseudomonas Aeruginosa Assess/Plan/Problems-Billing Assessment: 57 yr old wm with hx of late lyme with neuro deficits was called in due to + blood cx drawn from his permacath site. pt has been on three abx regime at home for one yr until one month ago. - Patient Problems (1) Positive blood culture Current Visit: Yes Status: Acute Code(s): R78.81 - BACTEREMIA SNOMED Code( s): 015349896 Comment: Pseudomonas sens to cipro. Sens to cefepime pending. Patient can be discharged after 24 hrs of IV antibiotics following removal of the Groshong catheter, and treatment completed with 10 days po cipro. (2) Anxiety Current Visit: Yes Status: Acute Code(s): F41.9 - ANXIETY DISORDER, UNSPECIFIED SNOMED Code(s): 23810756 Comment: benzo at home dose
--- NOTE | 2018-06-14 14:20 | ECHO ---
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 Technical Comments: The study quality is good. Completed at 0840. Left Ventricle: The left ventricular chamber size is normal. Mild concentric left ventricular hypertrophy is observed. The estimated ejection fraction is 55-60%. Abnormal left ventricular diastolic function is observed. Abnormal left ventricular diastolic filling is observed, consistent with impaired relaxation. Left Atrium: The left atrial chamber size is normal. Right Ventricle: The right ventricle wall thickness is mildly increased.7 mm The right ventricular cavity size is normal. The right ventricular global systolic function is low normal. Right Atrium: The right atrial cavity size is normal. Aortic Valve: The aortic valve is trileaflet. There is no evidence of aortic valve thickening. There is no evidence of aortic regurgitation. There is no evidence of aortic stenosis. There is no aortic vegetation present. Mitral Valve: The mitral valve leaflets are mildly thickened. There is no evidence of mitral regurgitation. There is no evidence of mitral stenosis. No vegetation is observed on the mitral valve. Tricuspid Valve: The tricuspid valve leaflets are normal. There is mild tricuspid regurgitation. There is evidence of mild pulmonary hypertension. There is no tricuspid stenosis. No vegetation is observed on the tricuspid valve. Pulmonic Valve: The pulmonic valve appears normal. There is no evidence of pulmonic regurgitation. There is no pulmonic stenosis. No vegetation is observed on the pulmonic valve. Pericardium: The pericardium appears normal. Aorta: There is no dilatation of the ascending aorta. There is no dilatation of the aortic arch. There is no dilation of the aortic root. Pulmonary Artery: The main pulmonary artery appears normal. Venous: The inferior vena cava appears normal in size. There is a greater than 50% respiratory change in the inferior vena cava dimension. Summary: There was not any prior study for comparison. Conclusions Mild concentric left ventricular hypertrophy is observed. The estimated ejection fraction is 55-60%. Abnormal left ventricular diastolic filling is observed, consistent with impaired relaxation. The right ventricle wall thickness is mildly increased.7 mm The right ventricular global systolic function is low normal. There is mild tricuspid regurgitation. No obvious vegetations. If there is a high clinical suspicion, consider transesophageal echocardiography. Measurements Name Value Normal Range RVIDd (AP) 2D 2.5 cm (0.9 - 2.6) RVDdMajor (2D) 4 cm (2.2 - 4.4) RAd ISD 4CH 5.4 cm (3.4 - 4.9) RA (A4C)W 4.6 cm (2.9 - 4.6) IVSd (2D) 1.1 cm (0.6 - 1) LVPWd (2D) 1.1 cm (0.6 - 1) LVIDd (2D) 4.5 cm (3.6 - 5.4) LVIDs (2D) 3.1 cm - LV FS (2D) 30 % (25 - 45) Aortic Annulus 1.8 cm (1.4 - 2.6) Ao root diameter (2D) 3.1 cm (2.1 - 3.5) Ascending Ao 2.9 cm (2.1 - 3.4) Aortic arch 2 cm (1.8 - 3.4) Descending Ao 1.3 cm - LA dimension (AP) 2D 2.4 cm (2.3 - 3.8) LAd ISD 4CH 4.3 cm (2.9 - 5.3) LA ISD 4CH W 4 cm (2.5 - 4.5) Name Value Normal Range LA ESV SP 4CH (A/L) 37 ml - LA ESV SP 2CH (A/L) 41 ml - LA ESV BP (A/L) 43 ml - LA ESV BP (A/L) index 22.38 ml/m2 - LA ESV SP 4CH (MOD) 33 ml - LA ESV SP 2CH (MOD) 36 ml - Name Value Normal Range MV E-wave Vmax 0.7 m/sec - MV deceleration time 233 msec - MV A-wave Vmax 0.5 m/sec - MV E:A ratio 1.49 ratio - LV septal e' Vmax 0.13 m/sec - LV lateral e' Vmax 0.16 m/sec - LV E:e' septal ratio 5.38 ratio - LV E:e' lateral ratio 4.38 ratio - Name Value Normal Range AV Vmax 1.4 m/sec - AV VTI 25.2 cm - AV peak gradient 7.32 mmHg - AV mean gradient 3.04 mmHg - LVOT Vmax 1 m/sec - LVOT VTI 16.9 cm - LVOT peak gradient 3.8 mmHg - LVOT mean gradient 1.59 mmHg - Name Value Normal Range TR Vmax 2.9 m/sec - TR peak gradient 34 mmHg - RAP 8 mmHg - RVSP 42 mmHg - IVC diameter 2.3 cm - Name Value Normal Range PV Vmax 0.8 m/sec - PV peak gradient 2.85 mmHg -
--- NOTE | 2018-06-14 16:39 | PN ---
Subjective Date of Service: 06/14/18 Interval History: No new c/o. No more seats or chills. Objective Active Medications: Clonazepam (Klonopin Tab(*)) 1 mg PO TID PRN PRN Reason: AGITATION/ANXIETY Sodium Chloride (Ns 0.9% 1000 Ml*) 1,000 mls @ 100 mls/hr IV PER RATE [facility] Last Admin: 06/13/18 23:24 Dose: 100 mls/hr Cefepime HCl (Maxipime 2 Gm In Dextrose Duplex (*)) 2 gm in 50 mls @ 100 mls/ hr IV Q12H [facility] Last Admin: 06/14/18 05:52 Dose: 100 mls/hr Lactobacillus Rhamnosus (Lactobacillus Acidophilus*) 1 tab PO DAILY [facility] Last Admin: 06/14/18 11:38 Dose: 1 tab Vital Signs - 8 hr 06/14/18 11:41 Temperature 98.3 F Pulse Rate 68 Respiratory 16 Rate Blood Pressure 109/61 (mmHg) O2 Sat by Pulse 100 Oximetry Oxygen Devices in Use Now: None Appearance: Alert, sitting up in bed. In good spirits. Looks comfortable. Eyes: No Scleral Icterus Respiratory: Symmetrical Chest Expansion and Respiratory Effort, Clear to Auscultation, Clear to Percussion Cardiovascular: NL Sounds; No Murmurs; No JVD, RRR, No Edema, - Extremities: No Edema, No Clubbing, Cyanosis, - Skin: No Rash or Ulcers, No Nodules or Sclerosis, - Neurological: Alert and Oriented x 3, NL Sensation Result Diagrams: 06/13/18 17:27 06/13/18 17:27 Microbiology and Other Data: Microbiology 06/13/18 17:59 Aerobic Blood Culture - Preliminary Blood Venous Pseudomonas Aeruginosa Assess/Plan/Problems-Billing Assessment: 57 yr old wm with hx of late lyme with neuro deficits was called in due to + blood cx drawn from his permacath site. pt has been on three abx regime at home for one yr until one month ago. - Patient Problems (1) Positive blood culture Current Visit: Yes Status: Acute Code(s): R78.81 - BACTEREMIA SNOMED Code( s): 598437896 Comment: Pseudomonas sens to cipro. Sens to cefepime pending. Patient can be discharged after 24 hrs of IV antibiotics following removal of the Groshong catheter, and treatment completed with 10 days po cipro.
[2018-06-14] MEDS: Acetaminophen TAB* 325 MG PO PRN (19:38)
[2018-06-14] MEDS: NS 0.9% 1000 ML* 1,000 ML IV SCH (19:38)
--- NOTE | 2018-06-14 20:04 | PN ---
Progress Note - Progress Note Date of Service: 06/14/18 Note: Time spent on discharge including exam of patient, discussion with patient, nurse, CM, micro lab, Dr. La, , review of EMR and preparation of discharge documents 50 minutes.
[2018-06-14 22:58] VITALS: BP 113/77
[2018-06-15] MEDS: Acetaminophen TAB* 325 MG PO PRN (05:30)
[2018-06-15] MEDS: Cefepime 2 GM in Dextrose(*) 2 GM/50 ML BAG IV SCH (06:06)
--- NOTE | 2018-06-15 12:52 | OP ---
CC: Sara Mead MD OPERATIVE REPORT: DATE OF OPERATION: 06/14/18 DATE OF : 60 SURGEON: Edison Allen MD FLAG MAKER: None. ANESTHESIA: 1% lidocaine plain used locally. PRE-OP DIAGNOSIS: Line sepsis. POST-OP DIAGNOSIS: Line sepsis. OPERATIVE PROCEDURE: Removal of tunneled cuffed central venous catheter. ESTIMATED BLOOD LOSS: 5 mL. SPECIMEN: Catheter tip for culture and sensitivity. DRAINS: None. COMPLICATIONS: None. INDICATIONS: This is a 57-year-old gentleman who has an indwelling Groshong catheter in the right internal jugular vein, who presented to [facility] Emergency Room and was found to have positive blood cultures of the line. General surgery was consulted for line removal. The procedure was explained to the patient and after explained indications, risks, benefits, alternatives, and option of treatment, he had all his questions answered. He stated understanding. He agreed to proceed. DESCRIPTION OF PROCEDURE: The patient was positioned supine on the hospital bed. The right neck and chest were prepped and draped in the usual sterile fashion and time-out was performed. Local anesthetic was infiltrated into the skin and soft tissue overlying the palpable subcutaneous cuff for the catheter. The incision was made in the longitudinal direction of the catheter, overlying the cuff and the catheter was dissected out. The catheter was clamped and the distal portion was divided. The cuff was then dissected out using sharp dissection and the catheter was then removed from the patient with Valsalva being performed. The catheter tip was submitted for culture and sensitivity. Hemostasis was achieved with direct pressure and the wound was closed with interrupted 5-0 Monocryl in subcuticular fashion. Steri-Strips were applied. Dressings were applied. The patient tolerated the procedure well and there were no immediate complications. [id number]/[facility] #: [id number] MTDD
--- NOTE | 2018-06-15 14:23 | DS ---
CC: Dr. Sara Mead DISCHARGE SUMMARY: DATE OF ADMISSION: 06/13/18 DATE OF DISCHARGE: 06/15/18. This is being dictated in advance. HOSPITAL COURSE: This 57-year-old man presented after being notified that his blood cultures were po sitive. He comes every week to infusion center to have labs and I believe the entire blood culture i s drawn from his Groshong catheter. He had this catheter inserted approximately a year ago for treat ment related to Lyme disease. He was getting 3 intravenous antibiotics and the antibiotics themselve s may have been discontinued about a month ago. His blood cultures here grew out Pseudomonas sensitive to both cefepime and ciprofloxacin. He was tr eated in the hospital with cefepime 2 g every 12 hours. His Groshong catheter was removed. He was tr eated through a peripheral IV. He did well in the hospital and clinically appeared quite well. He is being discharged on 06/15/18 after his morning dose of cefepime. 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 He will get one more dose of cefepime 2 g IV in the evening of 06/15/18. He will start ciprofloxacin 500 mg b.i.d. for 10 days starting on the morning of 06/16/18. He will follow up with his usual providers including Dr. Mead. FINAL DIAGNOSIS: Central line associated blood stream infection due to Pseudomonas. DISCHARGE MEDICATIONS: 1. Cefepime 2 g 1 dose in the evening of 06/15/18, then ciprofloxacin 500 mg b.i.d. for 10 days. 2. Acidophilus probiotic 1 capsule daily. 3. Clonazepam 1 mg t.i.d. p.r.n. CONDITION ON DISCHARGE: Stable. DISPOSITION ON DISCHARGE: Discharged home. [id number]/[facility] #: [id number]
== END 2018-06-15 07:30 | disposition home or self-care (01) | DRG 711 ==
LOC: ED 16:49 → MEDTELE 20:42
PROVIDERS: ADMIT Internal Medicine; ATTEND Internal Medicine
PROC: 05PY03Z Removal of Infusion Device from Upper Vein, Open Approach (ICD-10-PCS; principal; 2018-06-14)
DX: T80.211A Bloodstream infection due to central venous catheter, initial encounter (principal); A41.9 Sepsis, unspecified organism; A69.20 Lyme disease, unspecified; B96.5 Pseudomonas (aeruginosa) (mallei) (pseudomallei) as the cause of diseases classified elsewhere; K21.9 Gastro-esophageal reflux disease without esophagitis; E80.4 Gilbert syndrome; M19.011 Primary osteoarthritis, right shoulder; F41.9 Anxiety disorder, unspecified; F60.9 Personality disorder, unspecified; Y82.8 Other medical devices associated with adverse incidents; Y92.009 Unspecified place in unspecified non-institutional (private) residence as the place of occurrence of the external cause; Z90.49 Acquired absence of other specified parts of digestive tract; Z87.891 Personal history of nicotine dependence; Z88.5 Allergy status to narcotic agent; Z88.0 Allergy status to penicillin; Z88.8 Allergy status to other drugs, medicaments and biological substances
CPT/HCPCS: 36415; 80053; 81003; 83605; 84484; 85025; 85610; 85730; 86140; 87040; 87071; 87077; 87186; 87205; 93005; 93306; 99284; A9270-GY; J0692

== ENCOUNTER 2018-07-04 08:56 | Inpatient (IN) | payer BC ==
[2018-07-04] MEDS ORDERED: NS 0.9% 1000 ML*IV.FLUID IV ONE (09:03)
[2018-07-04] MEDS ORDERED: Ketorolac INJ* 30 MG/ML 1 ML VIAL IV PUSH ONE (09:25)
--- NOTE | 2018-07-04 09:39 | ED ---
Complex/Multi-Sys Presentation - HPI Summary HPI Summary: 57-year-old male with past medical history of neurological lying presents with shoulder and neck pain since yesterday. He denies any injury. He states he fever and chills. He states he feels like she is septic. He states that he was seen here couple weeks ago and had his port a cold as well as infected. He was sent home on Cipro. He states he is feeling better until yesterday. He admits to occasional cough. He admits to headache and dizziness. He also to nausea. He states that there is something wrong with him. He denies any bowel pain. No vomiting. No urinary symptoms. He denies any photophobia. He states it is his line that is acting up. He states he only feels better when he has IV antibiotics. - History Of Current Complaint Chief Complaint: EDGeneral Time Seen by Provider: 07/04/18 09:03 - Allergies/Home Medications Allergies/Adverse Reactions: Allergies Allergy/AdvReac Type Severity Reaction Status Date / Time morphine Allergy Severe Vomiting Verified 07/04/18 13:13 Penicillins Allergy Unknown Unknown Verified 07/04/18 13:13 Reaction Details heparin Allergy See Comment Verified 07/04/18 13:13 Home Medications: Home Medications clonazePAM [Clonazepam] 1 tab PO DAILY PRN 07/04/18 [History Confirmed 07/04/18] PMH/Surg Hx/FS Hx/Imm Hx Endocrine/Hematology History: Denies: Hx Diabetes Cardiovascular History: Reports: Hx Valvular Heart Disease - possible mitral valve prolapsed, Other Cardiovascular Problems/Disorders - LYME Denies: Hx Hypertension, Hx Pacemaker/ICD Respiratory History: Comment Only: Other Respiratory Problems/Disorders - LYME GI History: Reports: Hx Gastroesophageal Reflux Disease, Other GI Disorders - [place] Syndrome Denies: Hx Cirrhosis History: Denies: Hx Renal Disease Musculoskeletal History: Reports: Hx Arthritis - RIGHT SHOULDER, SPINE, Hx Bursitis - RIGHT SHOULDER, Hx Tendonitis - RIGHT SHOULDER, Other Musculoskeletal History - Lyme disease Sensory History: Reports: Hx Contacts or Glasses Denies: Hx Hearing Aid Opthamlomology History: Reports: Hx Contacts or Glasses Neurological History: Reports: Other Neuro Impairments/Disorders - LYME DISEASE Psychiatric History: Reports: Hx Anxiety Denies: Hx Panic Disorder - Surgical History Surgery Procedure, Year, and Place: CHOLECYSTECTOMY, 06/2010[place]. RIGHT SHOULDER BURSECTOMY. [place] [facility] [place] Anesthesia Reactions: Yes - MORPHINE - VOMITING SEVERE Infectious Disease History: No Infectious Disease History: Denies: Hx Hepatitis, History Other Infectious Disease, Traveled Outside the [place] in Last 30 Days - Family History Known Family History: Negative: Cardiac Disease, Diabetes - Social History Alcohol Use: None Hx Substance Use: No Substance Use Type: Reports: Marijuana Substance Use Comment - Amount & Last Used: daily per pt Hx Tobacco Use: Yes Smoking Status (MU): Former Smoker Amount Used/How Often: pack a day for 25 years Have You Smoked in the Last Year: No Review of Systems Positive: Fever, Chills Negative: Chest Pain Negative: Shortness Of Breath Positive: Myalgia - neck pain and shoulder pain All Other Systems Reviewed And Are Negative: Yes Physical Exam Vital Signs On Initial Exam: Initial Vitals Temp Pulse Resp BP Pulse Ox 99.5 F 90 18 139/73 100 07/04/18 08:57 07/04/18 08:57 07/04/18 08:57 07/04/18 08:57 07/04/18 08:57 Diagnostics - Vital Signs Vital Signs Temp Pulse Resp BP Pulse Ox 07/04/18 09:12 100 07/04/18 09:08 70 17 100 07/04/18 09:07 69 16 134/78 99 07/04/18 08:57 99.5 F 90 18 139/73 100 - Laboratory Result Diagrams: 07/04/18 10:40 07/04/18 10:40 Lab Statement: Any lab studies that have been ordered have been reviewed, and results considered in the medical decision making process. Re-Evaluation - Re-Evaluation First Eval Re-Evaluation Time: 09:53 Comment: patient refusing chest xray Second Eval Re-Evaluation Time: 12:30 Comment: patient agreed to chest xray, discussed lp and patient agreed. Complex Multi-Symp Course/Dx Course Of Treatment: 57-year-old male presents with fever to neck pain and back stiffness. He states he's been having occasional cough. No abdominal pain. No nausea vomiting. States this feels like when he was septic. Was admitted a month ago for sepsis due to an infected PICC line. He just finished up his antibiotics a week ago. On exam will not move neck. Lungs clear to auscultation. Abdomen soft nontender. Flu neg. patient declined xray. patient is a hard stick so will get vascular to get access. White blood cell count elevated. CRP elevated. Chest x-ray normal. Discussed with dr marie who will do lumbar puncture. patient then refused lp. patient states had lp a month ago but explained this is a different situation and patient still refused. patient states that wants to talk to adminsitration since had such a poor experience here last time so administration was contacted. patient states has infected wbc as is friends with the pathologist. dr marie saw patient and ordered board spectrum antiibotics. discussed case with dr matthews. anasethesia came to do LP - Diagnoses Differential Diagnoses/HQI/PQRI: Sepsis, Urinary Tract Infection, Other - influenza Provider Diagnoses: Fever, Neck stiffness Discharge - Sign-Out/Discharge Documenting (check all that apply): Patient Departure - Discharge Plan Condition: Stable Disposition: ADMITTED TO [facility] - Billing Disposition and Condition Condition: STABLE Disposition: Admitted to [facility]
[2018-07-04] MEDS ORDERED: Orphenadrine Citrate IV* 30 MG/ML 2 ML VIAL IM ONE (09:45)
[2018-07-04 11:10] LABS: ABS Basophils 0.1 10^3/ul (0-0.2); ABS Eosinophils 0 10^3/ul (0-0.6); ABS Lymphocytes 0.8 10^3/ul (1.0-4.8); ABS Monocytes 1.2 10^3/ul (0-0.8); ABS Neutrophils 10.1 10^3/ul (1.5-7.7); ABS Nucleated RBC 0 10^3/ul; Eosinophil % 0 %; Hematocrit 44 % (42-52); Hemoglobin 14.9 g/dl (14.0-18.0); Lymphocyte % 6.9 %; Mean Corpuscular HGB Conc 34 g/dl (31-36); Mean Corpuscular Hemoglobin 32 pg (27-31); Mean Corpuscular Volume 94 fL (80-94); Mean Platelet Volume 7.3 fL (7.4-10.4); Nucleated Red Blood Cells % 0.1; Platelet Count 209 10^3/ul (150-450); Red Blood Count 4.74 10^6/ul (4.00-5.40); Red Cell Distribution Width 14 % (10.5-15); White Blood Count 12.2 10^3/ul (3.5-10.8)
[2018-07-04 11:19] LABS: Activated Partial Thrombo Time 24.8 seconds (26.0-36.3); INR 0.87 (0.77-1.02)
[2018-07-04 11:35] LABS: Albumin 4.2 g/dL (3.2-5.2); Albumin/Globulin Ratio 1.3 (1-3); BUN/Creatinine Ratio 13.2 (8-20); C Reactive Protein 88.81 mg/L (<8.01); Calcium 9.7 mg/dL (8.6-10.3); EGFR Non-African American 105.7 (>60); Globulin 3.2 g/dL (2-4); Potassium 3.7 mmol/L (3.5-5.0); Total Bilirubin 1.9 mg/dL (0.2-1.0); Total Protein 7.4 g/dL (6.4-8.9)
[2018-07-04 11:38] LABS: Urine Appearance Clear; Urine Bilirubin Negative (Negative); Urine Blood Negative (Negative); Urine Color Straw; Urine Glucose Negative (Negative); Urine Ketones Negative (Negative); Urine Nitrite Negative (Negative); Urine Protein Negative (Negative); Urine Specific Gravity 1.005 (1.010-1.030); Urine Urobilinogen Negative (Negative)
[2018-07-04] MEDS ORDERED: Cefepime(*) 2 GM in NS 0.9% 50 ML* 50 ML IVPB ONE (12:24)
[2018-07-04] MEDS ORDERED: metroNIDAZOLE IV 500 MG/100ML* 500 MG/100 ML BAG IVPB ONE (12:24)
--- NOTE | 2018-07-04 12:41 | ED ---
Progress - Progress Note Progress Note: MI Lopez, has asked me to see this pt. Pt is a 57 y/o male presenting to [facility] c/o pain between shoulder blades, neck pain, arthralgia. He additionally states chills, shaking, headache, photophobia. Denies cough, sore throat. Pt notes he was admitted on 06/13/18 for an infected PICC line on his right chest. Pt was then discharged and placed on 10 days of Ciprofloxacin, which he finished on 06/24/18. He believes he is in sepsis now. Pt reports he goes to [place] where he receives stem cell treatment, last time was 2 weeks ago. PMHx: lyme disease. PHYSICAL EXAM: Constitutional: Well-developed, Well-nourished, Alert. (-) Distressed Skin: Warm, Dry. Skin is hot to touch. HENT: Normocephalic; Atraumatic Eyes: Conjunctiva normal Neck: Appears to have nuchal rigidity. (-) JVD, (-) Stridor, (-) Tracheal deviation Cardio: Rhythm regular, rate normal, Heart sounds normal; Intact distal pulses; The pedal pulses are 2+ and symmetric. Radial pulses are 2+ and symmetric. (-) Murmur Pulmonary/Chest wall: Effort normal. (-) Respiratory distress, (-) Wheezes, (-) Rales Abd: Soft, (-) Tenderness, (-) Distension, (-) Guarding, (-) Rebound Musculoskeletal: (-) Edema Lymph: (-) Cervical adenopathy Neuro: Alert, Oriented x3 Psych: Mood and affect Normal Re-Evaluation - Re-Evaluation First Eval Re-Evaluation Time: 09:53 Comment: patient refusing chest xray Second Eval Re-Evaluation Time: 12:30 Comment: patient agreed to chest xray, discussed lp and patient agreed. Course/Dx - Course Course Of Treatment: On exam pt's skin is hot to touch and has nuchal rigidity. I offered to do a lumbar puncture, but pt refused. I ordered broad spectrum antibiotics, Cefepime, Flagyl, Vancomycin. Discussed the case with Dr. Ruff, hospitalist, who accepted the pt for admission. - Diagnoses Provider Diagnoses: Fever, Neck stiffness - Provider Notifications Discussed Care Of Patient With: Ashley Ruff - hospitalist Time Discussed With Above Provider: 12:59 Instructed by Provider To: Admit As Inpatient Discharge - Sign-Out/Discharge Documenting (check all that apply): Patient Departure - [facility] [facility] [place] Discharge Plan Condition: Stable Disposition: ADMITTED TO [facility] - Billing Disposition and Condition Condition: STABLE Disposition: Admitted to [facility] - Attestation Statements Document Initiated by Scribe: Yes Documenting Scribe: Jazzy Guadalupe Provider For Whom Scribe is Documenting (Include Credential): Mitchell Mccarthy MD Scribe Attestation: Jazzy Barrera, scribed for Mitchell Mccarthy MD on 07/08/18 at 0730. Scribe Documentation Reviewed: Yes Provider Attestation: The documentation as recorded by the Jazzy martinez accurately reflects the service I personally performed and the decisions made by Mitchell alejandro MD Status of Scribe Document: Viewed
[2018-07-04] MEDS ORDERED: Vancomycin(*) 1,000 MG VIAL IVPB SCH (13:00)
[2018-07-04] MEDS ORDERED: Vancomycin(*) 1,000 MG - ED ONCE IVPB ONE ×2 (13:00)
[2018-07-04] MEDS ORDERED: Cyclobenzaprine TAB* 10 MG PO ONE (13:23)
[2018-07-04] MEDS ORDERED: NS 0.9% 50 ML* 50 ML ONE (13:28)
[2018-07-04] MEDS ORDERED: Ondansetron INJ* 2 MG/ML VIAL IV PRN (14:08)
[2018-07-04] MEDS ORDERED: Acetaminophen TAB* 325 MG PO ONE (14:53)
[2018-07-04] MEDS ORDERED: Lidocaine 1%* 5 ML VIAL ONE (14:57)
[2018-07-04] MEDS ORDERED: Vancomycin(*) 0 MG in NS 0.9% 250 ML* 250 ML IVPB SCH (15:00)
[2018-07-04] MEDS ORDERED: metroNIDAZOLE IV 500 MG/100ML* 500 MG/100 ML BAG IVPB SCH (15:00)
[2018-07-04 15:24] LABS: Body Fluid Source Cerebral Spinal
[2018-07-04 15:40] LABS: CSF Glucose 73 mg/dL (40-70)
[2018-07-04] MEDS ORDERED: Acyclovir IV(*) 600 MG in NS 0.9% 100 ML* 100 ML IVPB SCH (16:00)
[2018-07-04] MEDS ORDERED: Vancomycin(*) 1,250 MG IV x ONCE IVPB ONE ×2 (16:00)
[2018-07-04] MEDS: metroNIDAZOLE IV 500 MG/100ML* 500 MG/100 ML BAG IVPB SCH ×2 (16:11→23:08)
[2018-07-04] MEDS ORDERED: Vancomycin per Pharmacy* NOTE FOLLOW UP PRN (16:46)
--- NOTE | 2018-07-04 19:21 | HP ---
CC: Dr. Sara Mead * ADMISSION HISTORY AND PHYSICAL: DATE OF ADMISSION: 07/04/18 PRIMARY CARE PROVIDER: Dr. Sara Mead. MY ATTENDING WHILE IN THE HOSPITAL: Dr. Ashley Ruff.* (DICTATED BY MI YEUNG) CHIEF COMPLAINT: Neck stiffness, subjective fevers. HISTORY OF PRESENT ILLNESS: Mr. Rivero is a 57-year-old male with past medical history that is significant mainly for a rather abnormal history of neuroborreliosis wherein he has been having nonspecific symptoms for over 11 years with his most recent known tick bite in 2006. The patient had numerous evaluations for this and with no definitive diagnosis until he had a CSF study positive for Lyme IgM and was treated at that point in June 2017. The patient then had 12 months' worth of combination of Rocephin, doxycycline, and daptomycin through a port. The patient states that this was effective in treating most of his symptoms; however, he continues to have intermittent chills , muscle aches, and subjective fevers. The patient completed this treatment, had a Lyme CSF study with no signs of Borrelia organisms. The patient for treatment of what he describes as chronic Lyme has been getting vitamin treatment including B12 and vitamin D as well as having 2 recent trips to [place], where he has been given stem cell infusions, which were harvested to the best of his knowledge from the umbilical cords of mothers' recent babies in the [place] area. He could not elaborate any sort of testing this may have undergone before being injected into him. The patient's most recent treatment was approximately 2 weeks ago. The patient was admitted to this institution in June with Pseudomonas aeruginosa bacteremia in association with his tunneled catheter, which was removed and he was treated with 3 days of IV antibiotics and 10 days of oral antibiotics and at that point felt better. The patient's symptoms at that time consisted of subjective fevers and chills as well as pain in his upper back and neck. The patient 2 nights ago began to feel worse with worsening subjective fevers and again pain in his upper back and neck with movement of his head. The patient denies headache, changes in visions, or photophobia. The patient has no other recent illnesses, no other recent changes in meds, no other abdominal pain, diarrhea, chest pain, or shortness of breath. No one around the patient has been sick. The patient came to the emergency department and initially refused a lumbar puncture. The patient had blood cultures drawn and was given vancomycin, cefepime, and Flagyl for empiric coverage of sepsis despite not having tachycardia, hypotension, or a fever above 99.5. Due to concern for sepsis in a patient with atypical infections, we were asked to evaluate the patient for admission. 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 PAST SURGICAL HISTORY: Appendectomy, cholecystectomy, penile repair, bursectomy. MEDICATIONS: 1. Vitamin B12 injections daily, unknown dose. 2. Vitamin D 1200 international units daily. 3. Clonazepam 1 mg p.o. q.p.m. ALLERGIES: MORPHINE, HEPARIN, PENICILLINS. PENICILLINS are likely not an active allergy. FAMILY HISTORY: The patient's father has prostate cancer. The patient's paternal grandfather of metastatic prostate cancer. The patient's mother is 80 years old, alive and well. The patient has 2 brothers, both of whom are very healthy. SOCIAL HISTORY: The patient smoked for approximately 20 pack years, quitting over 22 years ago. The patient does not drink alcohol or use illicit drugs. 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 The patient is and has no biological children. REVIEW OF SYSTEMS: A 14-point review of systems was reviewed and is negative except as above in the HPI. PHYSICAL EXAMINATION GENERAL: The patient is a 57-year-old male who appears stated age and is sitting comfortably in bed, in no acute distress. VITAL SIGNS: At time of evaluation, temperature 99.5, pulse rate 74, respiratory rate 13, oxygen saturation 99% on room air, blood pressure 134/86. HEENT: Head: Normocephalic, atraumatic. Sclerae anicteric. No conjunctival injection. Nasal mucosa moist. Oral mucosa moist. No pharyngeal erythema, discharge, or exudate. NECK: Tender to palpation, difficult to manipulate. No lymphadenopathy. No carotid bruits auscultated. No JVD. CARDIAC: Regular rate and rhythm. No clicks, murmurs, gallops, or rubs. Pulses 2+ in bilateral dorsalis pedis, posterior tibialis, and radial areas. ABDOMEN: Soft, nontender, nondistended. Bowel sounds present and normoactive in all 4 quadrants. No hepatosplenomegaly. No abdominal bruits auscultated. No hepatojugular reflux. GENITOURINARY: No suprapubic or CVA tenderness. SKIN: Clean, dry, intact. No rash. NEUROLOGIC: The patient has anisocoria with his left pupil at approximately 3 mm and his right pupil approximately 5 mm. Pupils are equal, round, and reactive to light. Extraocular movements intact. No other cranial nerve palsy , no other focal deficits. Alert and oriented x3. No headache. PSYCHIATRIC: Pleasant, cooperative. The patient is fixated on his Lyme diagnosis, but is otherwise cooperative. LABORATORY DATA: White blood cell count 12.2, hemoglobin 14.9, platelet count 209,000. INR 0.87. APTT 24.8. Sodium 137, potassium 3.7, chloride 102, carbon dioxide 27, anion gap 8, BUN 10, creatinine 0.76, glucose 117, lactic acid 1.2, calcium 9.7, bilirubin 1.9, AST 20, ALT 17, alkaline phosphatase 47, creatine kinase 176, troponin I of 0.01, CRP 88.81, total protein 7.4, albumin 4.2, globulin 3.2. Urine clear, otherwise unremarkable. Influenza serology negative. ASSESSMENT AND PLAN: IMPRESSION: Mr. Rivero is a 57-year-old male with past medical history significant for history of neuroborreliosis with residual subjective symptoms as well as anxiety who presents with 1 day of worsening neck stiffness and pain with subjective fevers. The patient has been undergoing treatment with stem cell therapy and has a history of neuro Lyme. The patient was started on empiric meningitis antimicrobial therapy and will have a lumbar puncture and be admitted to the hospital while all culture data is obtained. 1. Neck stiffness, subjective fevers consistent for meningitis. The patient has no recent sick contacts with meningitis. The patient had a recent lumbar puncture, which had no signs of Lyme organisms, which was presumed a success of his long-term antibiotic treatment; however, the patient did recently have a Pseudomonas bacteremia and symptoms consistent with how he felt when that was going on. Due to the patient's nuchal rigidity, the patient will have a lumbar puncture to help rule out meningitis. The patient will be on empiric antibiotic therapy with Flagyl, cefepime, vancomycin, and acyclovir; until then , these can be discontinued as indicated. The patient does have new anisocoria , but no other neurologic deficits. Given his lack of headache, fever, negative Brudzinski's and Kernig signs, the patient has a low likelihood of meningitis and will hopefully be able to be discharged soon without any ongoing antibiotic therapy. Due to the patient's long-term antibiotics use, he is at high risk for resistant organisms. 2. Anxiety. Continue the patient's clonazepam. 3. History of neuroborreliosis. The patient's CSF will be tested for Lyme by PCR for any possible residual spirochetes. 4. DVT prophylaxis. The patient will have SCDs and be encouraged to ambulate frequently. 5. FEN: The patient will have heart healthy diet without caffeine. The patient received a bolus in the emergency department. The patient was noted to be normotensive, will not continue on fluids. 6. Disposition. The patient will be admitted to observation. TIME SPENT: Approximately 75 minutes spent on the admission of this patient, 45 of which was spent in [id number] with the patient obtaining history and physical and discussion of treatment plan. Plan was discussed with my attending, Dr. Ashley Ruff and she is in agreement. MI YEUNG [id number]/[facility] #: [id number] TAMARA
[2018-07-04] MEDS: Acetaminophen TAB* 325 MG PO PRN (19:46)
[2018-07-04] MEDS ORDERED: Cyclobenzaprine TAB* 10 MG PO PRN (19:59)
[2018-07-04] MEDS: clonazePAM TAB(*) 1 MG PO PRN (20:21)
[2018-07-04] MEDS: oxyCODONE TAB* 5 MG TAB PO PRN (22:38)
[2018-07-04] MEDS: Vancomycin(*) 1,000 MG in NS 0.9% 250 ML* 250 ML IVPB SCH (22:47)
[2018-07-05] MEDS: Ketorolac INJ* 15 MG/ML 1 ML VIAL IV PUSH PRN ×3 (00:12→21:32)
[2018-07-05] MEDS: Cefepime 1 GM in Dextrose(*) 1 GM/50 ML BAG IV SCH ×2 (02:23→13:48)
[2018-07-05] MEDS: metroNIDAZOLE IV 500 MG/100ML* 500 MG/100 ML BAG IVPB SCH (06:16)
[2018-07-05 06:33] LABS: ABS Basophils 0 10^3/ul (0-0.2); ABS Eosinophils 0 10^3/ul (0-0.6); ABS Lymphocytes 0.7 10^3/ul (1.0-4.8); ABS Neutrophils 7.9 10^3/ul (1.5-7.7); ABS Nucleated RBC 0 10^3/ul; Eosinophil % 0.3 %; Hematocrit 37 % (42-52); Hemoglobin 12.9 g/dl (14.0-18.0); Lymphocyte % 7.1 %; Mean Corpuscular HGB Conc 35 g/dl (31-36); Mean Corpuscular Hemoglobin 33 pg (27-31); Mean Corpuscular Volume 93 fL (80-94); Mean Platelet Volume 7.1 fL (7.4-10.4); Nucleated Red Blood Cells % 0; Platelet Count 159 10^3/ul (150-450); Red Blood Count 3.98 10^6/ul (4.00-5.40); Red Cell Distribution Width 14 % (10.5-15); White Blood Count 9.7 10^3/ul (3.5-10.8)
[2018-07-05 06:50] LABS: BUN/Creatinine Ratio 17.1 (8-20); Calcium 8.4 mg/dL (8.6-10.3); EGFR Non-African American 105.7 (>60); Magnesium 1.7 mg/dL (1.9-2.7); Potassium 3.7 mmol/L (3.5-5.0)
[2018-07-05] MEDS: Vancomycin(*) 1,000 MG in NS 0.9% 250 ML* 250 ML IVPB SCH (09:15)
[2018-07-05] MEDS: oxyCODONE TAB* 5 MG TAB PO PRN ×3 (09:15→21:29)
[2018-07-05] MEDS: Acetaminophen TAB* 325 MG PO PRN ×2 (09:15→21:27)
--- NOTE | 2018-07-05 10:32 | PN ---
Subjective Date of Service: 07/05/18 Interval History: C/O pain across shoulders, relieved by oxyciodone 5 mg. Appetite fair. No new c/o. Objective Active Medications: Acetaminophen (Tylenol Tab*) 650 mg PO Q6H PRN PRN Reason: FEVER/PAIN Last Admin: 07/05/18 09:15 Dose: 650 mg Clonazepam (Klonopin Tab(*)) 1 mg PO QPM PRN PRN Reason: ANXIETY Last Admin: 07/04/18 20:21 Dose: 1 mg Cyclobenzaprine HCl (Flexeril Tab*) 10 mg PO TID PRN PRN Reason: SPASMS Last Admin: 07/04/18 20:21 Dose: 10 mg Cefepime HCl (Maxipime 1 Gm In Dextrose Duplex (*)) 1 gm in 50 mls @ 100 mls/ hr IV Q12H NIMCO Last Admin: 07/05/18 02:23 Dose: 100 mls/hr Ketorolac Tromethamine (Toradol Inj*) 15 mg IV PUSH Q6H PRN PRN Reason: PAIN Last Admin: 07/05/18 00:12 Dose: 15 mg Ondansetron HCl (Zofran Inj*) 4 mg IV Q6H PRN PRN Reason: NAUSEA Oxycodone HCl (Roxycodone Tab*) 5 mg PO Q6H PRN PRN Reason: PAIN Last Admin: 07/05/18 09:15 Dose: 5 mg Pharmacy Profile Note (Vancomycin Trough Check) 1 note FOLLOW UP 0730 ONE Stop: 07/06/18 07:31 Vital Signs - 8 hr 07/05/18 07/05/18 07/05/18 06:10 08:00 09:15 Temperature 98.7 F Pulse Rate 79 Respiratory 18 16 16 Rate Blood Pressure 115/53 (mmHg) O2 Sat by Pulse 98 98 Oximetry Oxygen Devices in Use Now: None Appearance: Alert, partly up in bed. In good spirits. Looks comfortable. Eyes: No Scleral Icterus Extremities: No Edema, No Clubbing, Cyanosis, - Skin: No Rash or Ulcers, No Nodules or Sclerosis, - Neurological: Alert and Oriented x 3, NL Sensation Result Diagrams: 07/05/18 06:18 07/05/18 06:18 Microbiology and Other Data: Microbiology 07/04/18 15:03 CSF Gram Stain (Tube 3) - Final Cerebral Spinal Fluid 07/04/18 09:42 Influenza Types A,B Antigen - Final Nasal Specimen received for Influenza A/B Molecular testing Assess/Plan/Problems-Billing Assessment: - Patient Problems (1) Fever Current Visit: Yes Status: Acute Code(s): R50.9 - FEVER, UNSPECIFIED SNOMED Code(s): 437868420 Comment: Negative CSF results to date. Stop vanco and metro, continue cefepime. If all cultures no growth by 07/06 consider discharge. (2) Anxiety Current Visit: No Status: Acute Code(s): F41.9 - ANXIETY DISORDER, UNSPECIFIED SNOMED Code(s): 68130937 Comment: benzo at home dose PRN
--- NOTE | 2018-07-05 11:52 | PN ---
Progress Note - Progress Note Date of Service: 07/05/18 Note: 's work phone: [phone]
[2018-07-05] MEDS: clonazePAM TAB(*) 1 MG PO PRN (21:29)
[2018-07-06] MEDS: Cefepime 1 GM in Dextrose(*) 1 GM/50 ML BAG IV SCH ×2 (01:11→14:24)
[2018-07-06] MEDS: Levofloxacin 750 MG IVPREMIX(* 750 MG/150 ML BAG IVPB SCH ×3 (03:19→08:33)
[2018-07-06] MEDS: Ketorolac INJ* 15 MG/ML 1 ML VIAL IV PUSH PRN ×2 (05:58→21:29)
[2018-07-06] MEDS: oxyCODONE TAB* 5 MG TAB PO PRN ×3 (05:59→21:29)
[2018-07-06] MEDS: Acetaminophen TAB* 325 MG PO PRN ×2 (06:09→18:22)
[2018-07-06 06:28] LABS: ABS Basophils 0 10^3/ul (0-0.2); ABS Eosinophils 0.1 10^3/ul (0-0.6); ABS Lymphocytes 1.5 10^3/ul (1.0-4.8); ABS Monocytes 0.9 10^3/ul (0-0.8); ABS Neutrophils 5.6 10^3/ul (1.5-7.7); ABS Nucleated RBC 0 10^3/ul; Hematocrit 41 % (42-52); Hemoglobin 13.9 g/dl (14.0-18.0); Lymphocyte % 18.3 %; Mean Corpuscular HGB Conc 34 g/dl (31-36); Mean Corpuscular Hemoglobin 32 pg (27-31); Mean Corpuscular Volume 93 fL (80-94); Mean Platelet Volume 7.1 fL (7.4-10.4); Nucleated Red Blood Cells % 0; Platelet Count 165 10^3/ul (150-450); Red Blood Count 4.39 10^6/ul (4.00-5.40); Red Cell Distribution Width 14 % (10.5-15); White Blood Count 8.1 10^3/ul (3.5-10.8)
[2018-07-06] MEDS ORDERED: Vancomycin Trough Check NOTE FOLLOW UP ONE (07:30)
--- NOTE | 2018-07-06 09:33 | PN ---
Subjective Date of Service: 07/06/18 Interval History: Mild interscapular pain. No cough, sore throat. No abd pain, sx's. No chills or sweats. Objective Active Medications: Acetaminophen (Tylenol Tab*) 650 mg PO Q6H PRN PRN Reason: FEVER/PAIN Last Admin: 07/06/18 06:09 Dose: 650 mg Clonazepam (Klonopin Tab(*)) 1 mg PO QPM PRN PRN Reason: ANXIETY Last Admin: 07/05/18 21:29 Dose: 1 mg Cyclobenzaprine HCl (Flexeril Tab*) 10 mg PO TID PRN PRN Reason: SPASMS Last Admin: 07/04/18 20:21 Dose: 10 mg Cefepime HCl (Maxipime 1 Gm In Dextrose Duplex (*)) 1 gm in 50 mls @ 100 mls/ hr IV Q12H [facility] Last Admin: 07/06/18 01:11 Dose: 100 mls/hr Levofloxacin/Dextrose (Levaquin 750 Mg Ivpremix(*)) 750 mg in 150 mls @ 100 mls /hr IVPB Q24H [facility] Last Admin: 07/06/18 08:33 Dose: 100 mls/hr Ketorolac Tromethamine (Toradol Inj*) 15 mg IV PUSH Q6H PRN PRN Reason: PAIN Last Admin: 07/06/18 05:58 Dose: 15 mg Ondansetron HCl (Zofran Inj*) 4 mg IV Q6H PRN PRN Reason: NAUSEA Oxycodone HCl (Roxycodone Tab*) 5 mg PO Q4H PRN PRN Reason: PAIN Last Admin: 07/06/18 05:59 Dose: 5 mg Vital Signs - 8 hr 07/06/18 07/06/18 07/06/18 03:17 03:18 05:59 Temperature Pulse Rate Respiratory 18 18 18 Rate Blood Pressure (mmHg) O2 Sat by Pulse Oximetry 07/06/18 07/06/18 07:22 07:59 Temperature 98.4 F Pulse Rate 58 Respiratory 16 16 Rate Blood Pressure 102/47 (mmHg) O2 Sat by Pulse 97 Oximetry Oxygen Devices in Use Now: None Appearance: Alert, sitting up in bed. In good spirits. Looks comfortable. Eyes: No Scleral Icterus Respiratory: Symmetrical Chest Expansion and Respiratory Effort, Clear to Auscultation, Clear to Percussion Cardiovascular: NL Sounds; No Murmurs; No JVD, RRR, No Edema, - Abdominal: NL Sounds; No Tenderness; No Distention, No Hepatosplenomegaly, - Extremities: No Edema, No Clubbing, Cyanosis, - Skin: No Rash or Ulcers, No Nodules or Sclerosis, - Neurological: NL Sensation Result Diagrams: 07/06/18 06:13 07/05/18 06:18 Microbiology and Other Data: Microbiology 07/04/18 15:03 CSF Gram Stain (Tube 3) - Final Cerebral Spinal Fluid 07/04/18 09:42 Influenza Types A,B Antigen - Final Nasal Specimen received for Influenza A/B Molecular testing Assess/Plan/Problems-Billing Assessment: - Patient Problems (1) Fever Current Visit: Yes Status: Acute Code(s): R50.9 - FEVER, UNSPECIFIED SNOMED Code(s): 375174167 Comment: Negative CSF results to date. Blood C&S from admission growing Pseudomonas, sens pending. Levofloxacin added 07/[address] scan T-spine w/wo for 07/06, echo for 07/07, repeat blood C&S x 2 07/07. Note CRP 176.63 on 07/06/18. (2) Anxiety Current Visit: No Status: Acute Code(s): F41.9 - ANXIETY DISORDER, UNSPECIFIED SNOMED Code(s): 62584609 Comment: benzo at home dose PRN
[2018-07-06] MEDS ORDERED: Iohexol 300* (CONTRAST) 10 ML SDV IV ONE (12:28)
[2018-07-06 17:01] LABS: HSV 1 PCR, CSF Negative (Negative); HSV 2 PCR, CSF Negative (Negative)
[2018-07-06 18:25] LABS: CSF VDRL Negative (Negative)
[2018-07-06 21:40] LABS: Lyme Disease Source CSF
[2018-07-06] MEDS: clonazePAM TAB(*) 1 MG PO PRN (23:03)
[2018-07-07] MEDS: Cefepime 1 GM in Dextrose(*) 1 GM/50 ML BAG IV SCH ×2 (02:11→15:04)
[2018-07-07] MEDS: oxyCODONE TAB* 5 MG TAB PO PRN ×4 (02:18→20:47)
[2018-07-07] MEDS: Acetaminophen TAB* 325 MG PO PRN ×2 (07:43→17:42)
[2018-07-07] MEDS: Levofloxacin 750 MG IVPREMIX(* 750 MG/150 ML BAG IVPB SCH (07:45)
--- NOTE | 2018-07-07 11:57 | PN ---
Subjective Date of Service: 07/07/18 Interval History: Patient again had fever yesterday evening. Objective Active Medications: Acetaminophen (Tylenol Tab*) 650 mg PO Q6H PRN PRN Reason: FEVER/PAIN Last Admin: 07/07/18 07:43 Dose: 650 mg Clonazepam (Klonopin Tab(*)) 1 mg PO QPM PRN PRN Reason: ANXIETY Last Admin: 07/06/18 23:03 Dose: 1 mg Cyclobenzaprine HCl (Flexeril Tab*) 10 mg PO TID PRN PRN Reason: SPASMS Last Admin: 07/04/18 20:21 Dose: 10 mg Cefepime HCl (Maxipime 1 Gm In Dextrose Duplex (*)) 1 gm in 50 mls @ 100 mls/ hr IV Q12H [facility] Last Admin: 07/07/18 02:11 Dose: 100 mls/hr Levofloxacin/Dextrose (Levaquin 750 Mg Ivpremix(*)) 750 mg in 150 mls @ 100 mls /hr IVPB Q24H [facility] Last Admin: 07/07/18 07:45 Dose: 100 mls/hr Ketorolac Tromethamine (Toradol Inj*) 15 mg IV PUSH Q6H PRN PRN Reason: PAIN Last Admin: 07/06/18 21:29 Dose: 15 mg Ondansetron HCl (Zofran Inj*) 4 mg IV Q6H PRN PRN Reason: NAUSEA Oxycodone HCl (Roxycodone Tab*) 5 mg PO Q4H PRN PRN Reason: PAIN Last Admin: 07/07/18 07:44 Dose: 5 mg Vital Signs - 8 hr 07/07/18 07/07/18 07/07/18 06:06 07:25 07:44 Temperature 99.3 F Pulse Rate 77 Respiratory 16 16 17 Rate Blood Pressure 140/75 (mmHg) O2 Sat by Pulse 97 Oximetry 07/07/18 11:18 Temperature 98.2 F Pulse Rate 76 Respiratory 16 Rate Blood Pressure 122/57 (mmHg) O2 Sat by Pulse 100 Oximetry Oxygen Devices in Use Now: None Eyes: PERRLA Respiratory: Clear to Auscultation Cardiovascular: RRR Extremities: No Edema Skin: No Rash or Ulcers Result Diagrams: 07/06/18 06:13 07/05/18 06:18 Microbiology and Other Data: Microbiology 07/04/18 15:03 CSF Gram Stain (Tube 3) - Final Cerebral Spinal Fluid 07/04/18 09:42 Influenza Types A,B Antigen - Final Nasal Specimen received for Influenza A/B Molecular testing Assess/Plan/Problems-Billing Assessment: 57 year old Male getting treated for pseudomonas bactremia, and is having persistent fever. - Patient Problems (1) Bacterial infection due to Pseudomonas Current Visit: Yes Status: Acute Code(s): B96.5 - PSEUDOMONAS (MALLEI) CAUSING DISEASES CLASSD [facility] SNOMED Code(s): 84430415 Comment: Pseudomonas bactremia, getting double coverage with IV levaquin and Cefepime. persistent fever despite on abx. blood cultures from 07/06/18, and pending. echo pending. In Jun 2018, was treated for psuedomonas bactermia as well. (2) Anxiety Current Visit: No Status: Acute Code(s): F41.9 - ANXIETY DISORDER, UNSPECIFIED SNOMED Code(s): 03159122 Comment: benzo at home dose PRN
[2018-07-07] MEDS: clonazePAM TAB(*) 1 MG PO PRN (20:46)
[2018-07-07] MEDS: Ketorolac INJ* 15 MG/ML 1 ML VIAL IV PUSH PRN (22:32)
[2018-07-08] MEDS: oxyCODONE TAB* 5 MG TAB PO PRN ×5 (00:59→23:53)
[2018-07-08] MEDS: Cefepime 1 GM in Dextrose(*) 1 GM/50 ML BAG IV SCH ×2 (01:00→15:21)
[2018-07-08] MEDS: Levofloxacin 750 MG IVPREMIX(* 750 MG/150 ML BAG IVPB SCH (08:04)
[2018-07-08] MEDS: Acetaminophen TAB* 325 MG PO PRN (08:05)
[2018-07-08] MEDS: Ketorolac INJ* 15 MG/ML 1 ML VIAL IV PUSH PRN ×3 (08:05→23:06)
--- NOTE | 2018-07-08 10:54 | ECHO ---
Patient: ADOLFO [facility] Rec#: [id number] : 1960 Date: 07/08/2018 Age: 57y Height: 178 cm / 70.1 in Weight: 66 kg / 145.5 lbs Sex: M BSA: 1.82 Room#: 402 Admit Date#: 07/06/2018 Type: Inpatient Referring: Cam Dooley MD Reading: Ollie Mccarthy MD Cost Control Specialist: Angelica Patel RDCS CC: Sara Mead MD Transthoracic Echocardiogram Indication: Bacteremia BP: 113/76 HR: 77 Rhythm: NSR Findings History: Chronic Lyme's disease, former smoker, director long term care antibiotics, PICC line. This is a LIMITED study to re-evaluate heart valves. Technical Comments: The study quality is good. Left Ventricle: The left ventricular chamber size is normal. Global left ventricular wall motion and contractility are within normal limits. There is normal left ventricular systolic function. The estimated ejection fraction is 55-60%. Right Ventricle: The right ventricular cavity size is normal. The right ventricular global systolic function is normal. Aortic Valve: The aortic valve is trileaflet. The aortic valve leaflets are mildly thickened. Mitral Valve: The mitral valve leaflets are mildly thickened. No vegetation is observed on the mitral valve. Tricuspid Valve: The tricuspid valve leaflets are normal. No vegetation is observed on the tricuspid valve. Pulmonic Valve: The pulmonic valve appears normal. No vegetation is observed on the pulmonic valve. Pericardium: There is no significant pericardial effusion. Summary: There are no significant changes when compared to the previous study done on 06/14/18 Conclusions Global left ventricular wall motion and contractility are within normal limits. There is normal left ventricular systolic function. The estimated ejection fraction is 55-60%. The aortic valve leaflets are mildly thickened. The mitral valve leaflets are mildly thickened. No vegetation is observed on the mitral valve. No vegetation is observed on the tricuspid valve. No vegetation is observed on the pulmonic valve. There is no significant pericardial effusion.
--- NOTE | 2018-07-08 10:55 | PN ---
Subjective Date of Service: 07/08/18 Interval History: Doing okay, still has pain. Afebrile overnight. Objective Active Medications: Acetaminophen (Tylenol Tab*) 650 mg PO Q6H PRN PRN Reason: FEVER/PAIN Last Admin: 07/08/18 08:05 Dose: 650 mg Clonazepam (Klonopin Tab(*)) 1 mg PO QPM PRN PRN Reason: ANXIETY Last Admin: 07/07/18 20:46 Dose: 1 mg Cyclobenzaprine HCl (Flexeril Tab*) 10 mg PO TID PRN PRN Reason: SPASMS Last Admin: 07/04/18 20:21 Dose: 10 mg Cefepime HCl (Maxipime 1 Gm In Dextrose Duplex (*)) 1 gm in 50 mls @ 100 mls/ hr IV Q12H [facility] Last Admin: 07/08/18 01:00 Dose: 100 mls/hr Levofloxacin/Dextrose (Levaquin 750 Mg Ivpremix(*)) 750 mg in 150 mls @ 100 mls /hr IVPB Q24H [facility] Last Admin: 07/08/18 08:04 Dose: 100 mls/hr Ketorolac Tromethamine (Toradol Inj*) 15 mg IV PUSH Q6H PRN PRN Reason: PAIN Last Admin: 07/08/18 08:05 Dose: 15 mg Ondansetron HCl (Zofran Inj*) 4 mg IV Q6H PRN PRN Reason: NAUSEA Oxycodone HCl (Roxycodone Tab*) 5 mg PO Q4H PRN PRN Reason: PAIN Last Admin: 07/08/18 08:04 Dose: 5 mg Vital Signs - 8 hr 07/08/18 07/08/18 03:31 08:04 Respiratory 18 20 Rate Oxygen Devices in Use Now: None Appearance: Sitting on bed, not in distress. Ears/Nose/Mouth/Throat: Mucous Membranes Moist Respiratory: Clear to Auscultation Cardiovascular: NL Sounds; No Murmurs; No JVD, RRR Skin: No Rash or Ulcers Neurological: Alert and Oriented x 3 Result Diagrams: 07/06/18 06:13 07/05/18 06:18 Microbiology and Other Data: Microbiology 07/04/18 15:03 CSF Gram Stain (Tube 3) - Final Cerebral Spinal Fluid 07/04/18 09:42 Influenza Types A,B Antigen - Final Nasal Specimen received for Influenza A/B Molecular testing Assess/Plan/Problems-Billing Assessment: 57 year old Male getting treated for pseudomonas bactremia, and is having persistent fever. - Patient Problems (1) Bacterial infection due to Pseudomonas Current Visit: Yes Status: Acute Code(s): B96.5 - PSEUDOMONAS (MALLEI) CAUSING DISEASES CLASSD [facility] SNOMED Code(s): 76813723 Comment: Pseudomonas bactremia, getting double coverage with IV levaquin and Cefepime. afebrile X 24 hrs now. blood cultures from negative thus far. echo pending. ordered MRI T-spine. In Jun 2018, was treated for psuedomonas bactermia as well. (2) Anxiety Current Visit: No Status: Acute Code(s): F41.9 - ANXIETY DISORDER, UNSPECIFIED SNOMED Code(s): 62735100 Comment: benzo at home dose PRN
[2018-07-08 13:36] LABS: BUN/Creatinine Ratio 14.1 (8-20); Calcium 9.3 mg/dL (8.6-10.3); EGFR Non-African American 102.6 (>60); Potassium 4.2 mmol/L (3.5-5.0)
[2018-07-08] MEDS ORDERED: Gadoteridol* (CONTRAST) 279.3 MG/ML 10 ML IV ONE (22:25)
[2018-07-08] MEDS: clonazePAM TAB(*) 1 MG PO PRN (23:53)
[2018-07-09] MEDS: Cefepime 1 GM in Dextrose(*) 1 GM/50 ML BAG IV SCH (01:05)
[2018-07-09] MEDS: Levofloxacin 750 MG IVPREMIX(* 750 MG/150 ML BAG IVPB SCH ×2 (09:07→11:03)
[2018-07-09] MEDS: Ketorolac INJ* 15 MG/ML 1 ML VIAL IV PUSH PRN (09:07)
[2018-07-09] MEDS: oxyCODONE TAB* 5 MG TAB PO PRN ×3 (09:27→16:14)
--- NOTE | 2018-07-09 10:13 | PN ---
Subjective Date of Service: 07/09/18 Interval History: Remains afebrile, doing okay, still has back/neck discomfort. Objective Active Medications: Acetaminophen (Tylenol Tab*) 650 mg PO Q6H PRN PRN Reason: FEVER/PAIN Last Admin: 07/08/18 08:05 Dose: 650 mg Clonazepam (Klonopin Tab(*)) 1 mg PO QPM PRN PRN Reason: ANXIETY Last Admin: 07/08/18 23:53 Dose: 1 mg Cyclobenzaprine HCl (Flexeril Tab*) 10 mg PO TID PRN PRN Reason: SPASMS Last Admin: 07/04/18 20:21 Dose: 10 mg Ketorolac Tromethamine (Toradol Inj*) 15 mg IV PUSH Q6H PRN PRN Reason: PAIN Last Admin: 07/09/18 09:07 Dose: 15 mg Ondansetron HCl (Zofran Inj*) 4 mg IV Q6H PRN PRN Reason: NAUSEA Oxycodone HCl (Roxycodone Tab*) 5 mg PO Q4H PRN PRN Reason: PAIN Last Admin: 07/09/18 09:27 Dose: 5 mg Vital Signs - 8 hr 07/09/18 07/09/18 07/09/18 07:50 08:00 09:27 Temperature 98.2 F Pulse Rate 71 Respiratory 18 18 Rate Blood Pressure 134/75 (mmHg) O2 Sat by Pulse 100 100 Oximetry Oxygen Devices in Use Now: None Eyes: PERRLA Ears/Nose/Mouth/Throat: Mucous Membranes Moist, - Respiratory: Clear to Palpation Cardiovascular: RRR Abdominal: NL Sounds; No Tenderness; No Distention Neurological: Alert and Oriented x 3 Result Diagrams: 07/06/18 06:13 07/08/18 12:54 Microbiology and Other Data: Microbiology 07/04/18 15:03 CSF Gram Stain (Tube 3) - Final Cerebral Spinal Fluid 07/04/18 09:42 Influenza Types A,B Antigen - Final Nasal Specimen received for Influenza A/B Molecular testing Assess/Plan/Problems-Billing Assessment: 57 year old Male getting treated for pseudomonas bactremia, and is having persistent fever. - Patient Problems (1) Bacterial infection due to Pseudomonas Current Visit: Yes Status: Acute Code(s): B96.5 - PSEUDOMONAS (MALLEI) CAUSING DISEASES CLASSD [facility] SNOMED Code(s): 52908076 Comment: Pseudomonas bactremia, getting double coverage with IV levaquin and Cefepime. afebrile X 24 hrs now. blood cultures from negative thus far. Echo is negative. MRI Tspine shows discitis/osteomyelitis, discussed case with ID- patient refuses to see ID - Dr. Sal due to disagreements regarding other conditions in the past, but patient was ammenable for me to talk to him to get recommendations I discussed possible transfer to the patient so he can get ID consult at other facility, which he refuses. Per ID: we can give levaquin 500mg IV daily X 6 weeks, daily CBC, and refer to outpatient ID, patient is not wanting to see ID as an outpatient- even if it is not Dr. Sal. D/C cefepime. continue levaquin. In Jun 2018, was treated for psuedomonas bactermia as well. Additionally meningitis has been ruled out with the CSF fluid/tap done on admission. (2) Anxiety Current Visit: No Status: Acute Code(s): F41.9 - ANXIETY DISORDER, UNSPECIFIED SNOMED Code(s): 00610667 Comment: benzo at home dose PRN
[2018-07-09] MEDS ORDERED: Levofloxacin 500 MG IVPREMIX(* 500 MG/100 ML BAG IVPB SCH (11:00)
[2018-07-09 12:51] VITALS: BP 142/74
--- NOTE | 2018-07-09 15:25 | PN ---
Hospitalist Progress Note Date of Service: 07/09/18 Discussed the case with PCP: Dr. Mead, she has been made aware patient will be discharged soon and will need total 6 weeks of IV antibiotics- Levaquin and weekly CBC. Also recommend an ID referral, however patient is refusing. She will follow up the patient and will follow the weekly CBC.
--- NOTE | 2018-07-09 21:20 | DS ---
CC: Dr. Sara Mead; [facility] * DISCHARGE SUMMARY: DATE OF ADMISSION: 07/04/18 DATE OF DISCHARGE: 07/09/18 ATTENDING PHYSICIAN: Dr. Talita Freeman. HOSPITAL COURSE: This is a 57-year-old male with history of chronic Lyme's disease, mitral valve prolapse, anxiety, who was brought in to the hospital because of neck stiffness and subjective fevers. The patient was admitted by Dr. Sanjay Francisco; please see his H and P for details. The patient was recently in our hospital in June 2018. At that time, was treated for Pseudomonas bacteremia. Subsequently, was discharged with oral ciprofloxacin. At that time, the patient had an IV catheter in group home that was removed and that was found to be the focus of the infection. Because of the patient's complaints of neck pain as well as the white cell count of 12.2 and having a fever, we had to rule out meningitis; for which patient underwent a lumbar puncture, which was negative for infectious etiology. CSF culture was negative on microbiology and the Gram stain as well showed no neutrophil observed, no organism seen and no cytospin smear. The patient's blood cultures were sent, which grew Pseudomonas aeruginosa on 09/17. The patient on admission was started on empiric antibiotics of vancomycin, Flagyl, cefepime, and acyclovir. Subsequently, the patient's antibiotic regimen was changed to include cefepime and Levaquin as double coverage for the Pseudomonas aeruginosa. The patient persistently continued to have fever on 07/04/18, 07/05/18, 07/06/18. Because of the persistent fever, repeat blood cultures were also sent as well as additional workup was ordered in the form of a 2D echocardiogram, which was negative for any vegetation. Thoracic spine MRI was ordered, which found inflammation suggestive of diskitis/ osteomyelitis at C6 to C7. Today, we got those results. I discussed the results with the patient and discussed with the patient that at this point we would recommend that he get an infectious disease consult; however, the patient does not like our infectious disease doctor due to disagreement in the past, Dr. La, but he was amenable for me to speak with him. I also offered the patient to be transferred to a different facility, so he can get the infectious disease consult and the appropriate care after that they would recommend; however, the patient refused. So, I curbsided Dr. La, got the recommendations of discharging the patient that would require IV antibiotics for 6 weeks of IV Levaquin would be sufficient, 500 mg, and requires weekly CBC. I discussed the plan with the patient of taking IV Levaquin 500 mg daily at our infusion center as well as weekly CBCs. I discussed with the patient that there is a risk of tendon rupture while being on long-term IV Levaquin. The patient understands the risk, I advised him to play any sports or running. The patient is agreeable to this. Also, I recommend an ID referral as an outpatient, however, patient refused. I also spoke with Dr. Sara Mead, the patient's primary care provider regarding all the discharge planning and what has been going in the hospital. Recommended a PICC line however patient refused and wanted to home with the midline IV. I discussed the case with the primary care provider and discussed the discharge plans and his need of IV antibiotics and weekly blood work. She agrees to follow the patient. DISCHARGE MEDICATIONS: Clonazepam p.r.n. 1 mg 3 times a day as needed for anxiety as well as IV Levaquin 500 mg every 24 hours; for the IV Levaquin, no prescription was sent. Order was sent to the infusion center as well as an order for weekly CBCs for the results to be forwarded to Dr. Sara Mead was also made out with the help of our onsite case manager. DISCHARGE INSTRUCTIONS: Include to follow up with the primary care provider in a week, the patient told to do activity as tolerated, to avoid sports or strenuous exercise while on IV Levaquin. The patient to return to the ER or seek medical help for fevers, chills, worsening neck and back pain or if any new symptoms occur. The patient to follow up with PCP in 1 week. The patient is advised that he needs weekly blood work in the form of CBC. Order has been made with results to be sent to Dr. Sara Mead; the patient has been given all this information. Also, the patient to have daily IV Levaquin arranged for 6 weeks at the infusion center. Next appointment is tomorrow for the infusion center at 10 o'clock. Patient was told to follow up with Infectious disease, however he refuses and states he will not go. offered a referral to an infectious disease specialist in a different city, which he also refuses. DISCHARGE DIAGNOSES: Include: 1. Pseudomonas bacteremia. 2. Diskitis/osteomyelitis of the C6-C7. 3. History of anxiety, DISCHARGE CONDITION: Fair. DISPOSITION: The patient to be discharged home. For my discharge physical examination, please see my progress note from today. [id number]/CPS #: [id number] MTDD
== END 2018-07-09 16:15 | disposition home or self-care (01) | DRG 344 ==
LOC: ED 08:56 → MED 14:08 → OBSVTOIN 07-06 15:20
PROVIDERS: ADMIT Hospitalist; ATTEND Internal Medicine
PROC: 009U3ZX Drainage of Spinal Canal, Percutaneous Approach, Diagnostic (ICD-10-PCS; principal; 2018-07-04)
DX: M46.24 Osteomyelitis of vertebra, thoracic region (principal); B96.5 Pseudomonas (aeruginosa) (mallei) (pseudomallei) as the cause of diseases classified elsewhere; M46.44 Discitis, unspecified, thoracic region; F41.9 Anxiety disorder, unspecified; I34.1 Nonrheumatic mitral (valve) prolapse; Z79.899 Other long term (current) drug therapy; Z88.5 Allergy status to narcotic agent; Z88.8 Allergy status to other drugs, medicaments and biological substances; Z80.42 Family history of malignant neoplasm of prostate; Z87.891 Personal history of nicotine dependence; Z87.898 Personal history of other specified conditions
CPT/HCPCS: 36415; 71045; 72129; 72157; 80048; 80053; 81003; 82550; 82945; 83605; 83735; 84157; 84484; 85025; 85610; 85652; 85730; 86140; 86592; 86618; 87040; 87070; 87077; 87186; 87205; 87476; 87529; 87798; 89051; 93306; 99285; A9270-GY; A9579; G0378; J0133; J0692; J1885; J1956; J2360; J3370; J3490; Q9967